=== PATIENT | female | born 1990 | race African-American/Black ===

== ENCOUNTER 2016-09-25 07:47 | Emergency (ER) | payer MEDICAID ==
[~2016-09-25] VITALS: Ht 165.1 cm; Wt 96.0 kg
[~2016-09-25 07:47] MED LIST: IBUP600 PO; LORTA5 PO
[2016-09-25 07:49] VITALS: BP 123/66; PULSE 71; RESP 15; TEMP 97.8; O2SAT 98
--- NOTE | 2016-09-25 08:03 | PD ---
HPI Chief Complaint: Injury Time Seen by Provider: 08:00 Travel History International Travel<30 days: No Contact w/Intl Traveler<30days: No Traveled to known affect area: No History of Present Illness HPI Patient is a 26-year-old right-hand dominant female presenting with right thumb and first metacarpal pain. She states yesterday she was trying to move a TV and she had her hands underneath it and took the left hand out from underneath it and pressure was applied to the dorsum of the right thumb. She's had pain and swelling since. Ice did seem to help. No other attempts at palliation. He is endorses reduced range of motion secondary to pain. Mild paresthesias, no weakness or focal deficits. She denies current . PFSH Past Medical History Diminished Hearing: No Headaches: Yes Immunizations Current: No ?: Not : 3 Para: 3 Miscarriage: 0 : 0 Past Surgical History Cholecystectomy: Yes Social History Alcohol Use: No Tobacco Use: No Substance Use: No Allergies-Medications (Allergen,Severity, Reaction): Coded Allergies: Morphine (Verified Adverse Reaction, Severe, Itching, 09/25/16) Percocet (Verified Adverse Reaction, Intermediate, Swelling, 09/25/16) Reported Meds & Prescriptions Reported Meds & Active Scripts Active Diclofenac Sodium DR (Diclofenac Sodium) 50 Mg Tabdr 50 Mg PO BID Review of Systems Musculoskeletal: Positive: Limited ROM, Edema (secondary to pain), Pain Neurologic: Positive: Paresthesia, No: Weakness, Focal Abnormalities, Sensory Disturbance Physical Exam Narrative GENERAL: Well-developed and well-nourished adult female in no acute distress. SKIN: Warm and dry. Good turgor without tenting. HEAD: Normocephalic and atraumatic. CARDIOVASCULAR: Regular rate and rhythm without murmurs, rubs, clicks or gallops. Radial pulses 2+ bilaterally. Capillary refill less than 2 seconds distal tip of the right thumb. RESPIRATORY: Clear to auscultation bilaterally with symmetrical rise and fall, no distress or use of accessory muscles. MUSCULOSKELETAL: Right thumb is mild edema in the MTP joint. If he is tender over the first metacarpal and first MTP joint without palpable step-off or crepitus. No increased laxity of the MTP joint. Patient refuses to move the right thumb secondary to pain. There is no tenderness with palpation of the right wrist. No gait disturbances. Patient freely moving all four extremities spontaneously. Extremities without clubbing or cyanosis. No obvious deformities. NEUROLOGIC: CN II-XII grossly intact. Awake and alert. Motor grossly within normal limits. Sensation intact distal tip of the right thumb. Normal speech. PSYCHIATRIC: Appropriate mood and affect; insight and judgment normal. Data Data Last Documented VS Vital Signs Date Time Temp Pulse Resp B/P Pulse Ox O2 Delivery O2 Flow Rate FiO2 09/25/16 08:21 Room Air 09/25/16 07:49 97.8 71 15 123/66 98 Orders Finger ([id number]) (09/25/16 07:58) Ice/Cold Pack (09/25/16 07:58) Splint Or Brace Apply/Monitor (09/25/16 08:31) [facility] Medical Decision Making Medical Screen Exam Complete: Yes Emergency Medical Condition: Yes Interpretation(s) Last 24 hours Impressions Finger X-Ray 09/25/16 0758 Signed Impressions: Service Date/Time: August 08:19 - CONCLUSION: No acute abnormality is identified. Margarito Fierro MD Differential Diagnosis Thumb contusion versus thumb sprain versus thumb fracture Narrative Course Patient is a 26-year-old female presenting with right thumb and first metacarpal pain after it got caught under a TV she was trying to sit on a nightstand last evening. There is mild swelling. She is neurovascularly intact. She refuses to move it secondary to pain. This most likely represents a contusion however given the mechanism and refusal to move there could be a small avulsion fracture. Patient was given ice in order x-ray which shows no acute abnormality. Patient was given Esvin wrap and a prescription for diclofenac and recommended home care measures for thumb contusion.See discharge paperwork for further instructions. The plan was discussed with the patient who acknowledged their understanding and agreement. Reinforced the follow-up with primary care is critically important. Patient instructed on emergent conditions that should prompt return to ED. Diagnosis Primary Impression: Contusion of right thumb Qualified Code: S60.011A - Contusion of right thumb without damage to nail, initial encounter Patient Instructions: Contusion in Adults (ED), Finger Sprain (ED), General Instructions Additional Instructions: Take medications as prescribed Apply ice every 1 to 2 hours as needed for pain Avoid maneuvers that aggravate pain Keep ESVIN bandage on while being active or using extremity Follow-up with PCP in 2-3 days Return to the ED for any acute worsening of symptoms Med/Other Pt SpecificInfo: Prescription(s) given Scripts Diclofenac Sodium DR 50 Mg Tabdr50 Mg PO BID #14 TAB Prov:Khris Colón MD 09/25/16 Disposition: 01 DISCHARGE HOME Condition: Stable Margarito Braswell III Sep 25, 2016 08:03
--- NOTE | 2016-09-25 08:25 | RADRPT ---
EXAM DATE/TIME: 09/25/2016 08:19 [facility] COMPARISON: No previous studies available for comparison. INDICATIONS : Right hand, 1st digit pain after dropping tv on finger. MEDICAL HISTORY : None. SURGICAL HISTORY : None. ENCOUNTER: Initial ACUITY: 2 days PAIN SCORE: 10/10 LOCATION: Right hand, 1st digit. FINDINGS: Three views the right hand first digit demonstrate no fracture or dislocation. Mineralization is with in normal limits and there is no significant arthropathy. No soft tissue abnormality or radiopaque fo reign body is identified. CONCLUSION: No acute abnormality is identified. Margarito Fierro MD on September 25, 2016 at 8:22 Board Certified Radiologist. This report was verified electronically.
[2016-09-25] MEDS ORDERED: DICL50TA3 PO (08:32)
== END 2016-09-25 09:27 | disposition home or self-care (01) ==
LOC: NEPB 07:47
DX: S60.011A Contusion of right thumb without damage to nail, initial encounter (principal); W23.1XXA Caught, crushed, jammed, or pinched between stationary objects, initial encounter
CPT/HCPCS: 73140; 99283

== ENCOUNTER 2016-12-25 18:12 | Emergency (ER) | payer MEDICAID ==
[~2016-12-25] VITALS: Ht 162.6 cm; Wt 97.5 kg
[~2016-12-25 18:12] MED LIST changes: +DICL50TA3 PO; -IBUP600 PO; -LORTA5 PO
[2016-12-25 18:17] VITALS: BP 115/71; PULSE 85; RESP 16; TEMP 98.1; O2SAT 100
[2016-12-25] MEDS ORDERED: SODIUM CHLORIDE 0.9% FLUSH 10 ML FLUSH IVF PRN (20:15)
--- NOTE | 2016-12-25 20:21 | PD ---
HPI Chief Complaint: Chest Pain Time Seen by Provider: 20:16 Travel History International Travel<30 days: No Contact w/Intl Traveler<30days: No Traveled to known affect area: No History of Present Illness HPI Patient is a 26-year-old female presenting to emergency for evaluation of chest pain. Patient states her pain is midsternal, radiates to her right ribs and right arm at times. She states her pain is currently an 8 out of 10 and states it is stabbing in nature. She denies any nausea, vomiting, headache, shortness of breath or diaphoresis. She states that it has been ongoing for 3 days, she presents today because her blood pressure was also elevated which concerned her. Her BP at home was 140/106. Patient denies any significant past medical history. [facility] Past Medical History Medical History: Denies Significant Hx Diminished Hearing: No Headaches: Yes Immunizations Current: No ?: Not LMP: 12/16/16 : 3 Para: 3 Miscarriage: 0 : 0 Past Surgical History Cholecystectomy: Yes Social History Alcohol Use: No Tobacco Use: No Substance Use: No Allergies-Medications (Allergen,Severity, Reaction): Coded Allergies: Morphine (Verified Adverse Reaction, Severe, Itching, 12/25/16) Percocet (Verified Adverse Reaction, Intermediate, Swelling, 12/25/16) Reported Meds & Prescriptions Reported Meds & Active Scripts Active Diclofenac Sodium DR (Diclofenac Sodium) 50 Mg Tabdr 50 Mg PO BID Review of Systems Except as stated in HPI: all other systems reviewed are Neg HENT: No: Headaches Cardiovascular: Positive: Chest Pain or Discomfort, No: Palpitations, Tachycardia, Diaphoresis, Syncope, Edema Respiratory: No: Shortness of Breath Gastrointestinal: No: Nausea, Abdominal Pain Musculoskeletal: No: Myalgias Physical Exam Narrative GENERAL: Obese, well-developed, alert female. Resting comfortably in no acute distress. SKIN: Focused skin assessment warm/dry. HEAD: Atraumatic. Normocephalic. EYES: Pupils equal and round. No scleral icterus. No injection or drainage. ENT: No nasal bleeding or discharge. Mucous membranes pink and moist. NECK: Trachea midline. No JVD. CARDIOVASCULAR: Regular rate and rhythm. No murmur appreciated. RESPIRATORY: No accessory muscle use. Clear to auscultation. Breath sounds equal bilaterally. GASTROINTESTINAL: Abdomen soft, non-tender, nondistended. Hepatic and splenic margins not palpable. MUSCULOSKELETAL: No obvious deformities. No clubbing. No cyanosis. No edema. NEUROLOGICAL: Awake and alert. No obvious cranial nerve deficits. Motor grossly within normal limits. Normal speech. PSYCHIATRIC: Appropriate mood and affect; insight and judgment normal. Data Data Last Documented VS Vital Signs Date Time Temp Pulse Resp B/P Pulse Ox O2 Delivery O2 Flow Rate FiO2 12/25/16 22:18 68 18 135/68 99 12/25/16 21:24 Room Air 12/25/16 18:17 98.1 Orders Electrocardiogram (12/25/16 ) Basic Metabolic Panel (Bmp) (12/25/16 20:05) Ckmb (Isoenzyme) Profile (12/25/16 20:05) Complete Blood Count With Diff (12/25/16 20:05) D-Dimer (12/25/16 20:05) Magnesium (Mg) (12/25/16 20:05) Prothrombin Time / Inr (Pt) (12/25/16 20:05) Act Partial Throm Time (Ptt) (12/25/16 20:05) Troponin I (12/25/16 20:05) Chest, Single Ap (12/25/16 20:05) Ecg Monitoring (12/25/16 20:05) Bilateral Bp Monitoring (12/25/16 20:05) Iv Access Insert/Monitor (12/25/16 20:05) Oximetry (12/25/16 20:05) Oxygen Administration (12/25/16 20:05) Sodium Chloride 0.9% Flush (Ns Flush) (12/25/16 20:15) CKMB (12/25/16 20:29) CKMB% (12/25/16 20:29) Labs Laboratory Tests Test 12/25/16 20:29 White Blood Count 11.7 TH/MM3 Red Blood Count 4.37 MIL/MM3 Hemoglobin 11.0 GM/DL Hematocrit 34.1 % Mean Corpuscular Volume 78.0 FL Mean Corpuscular Hemoglobin 25.1 PG Mean Corpuscular Hemoglobin 32.2 % Concent Red Cell Distribution Width 15.6 % Platelet Count 409 TH/MM3 Mean Platelet Volume 7.5 FL Neutrophils (%) (Auto) 63.3 % Lymphocytes (%) (Auto) 29.6 % Monocytes (%) (Auto) 6.0 % Eosinophils (%) (Auto) 0.7 % Basophils (%) (Auto) 0.4 % Neutrophils # (Auto) 7.4 TH/MM3 Lymphocytes # (Auto) 3.5 TH/MM3 Monocytes # (Auto) 0.7 TH/MM3 Eosinophils # (Auto) 0.1 TH/MM3 Basophils # (Auto) 0.0 TH/MM3 CBC Comment DIFF FINAL Differential Comment Prothrombin Time 10.7 SEC Prothromb Time International 1.0 RATIO Ratio Activated Partial 22.6 SEC Thromboplast Time D-Dimer Quantitative (PE/DVT) 0.34 MG/L FEU Sodium Level 138 MEQ/L Potassium Level 4.0 MEQ/L Chloride Level 107 MEQ/L Carbon Dioxide Level 23.7 MEQ/L Anion Gap 7 MEQ/L Blood Urea Nitrogen 10 MG/DL Creatinine 0.77 MG/DL Estimat Glomerular Filtration 109 ML/MIN Rate Random Glucose 80 MG/DL Calcium Level 8.9 MG/DL Magnesium Level 2.0 MG/DL Total Creatine Kinase 141 U/L Creatine Kinase MB 0.6 NG/ML Troponin I LESS THAN 0.02 NG/ML MDM Medical Decision Making Medical Screen Exam Complete: Yes Emergency Medical Condition: Yes Interpretation(s) Vital Signs Date Time Temp Pulse Resp B/P Pulse Ox O2 Delivery O2 Flow Rate FiO2 12/25/16 18:17 98.1 85 16 115/71 100 Room Air Differential Diagnosis Atypical chest pain versus unstable angina versus cardiac arrhythmia versus electrolyte abnormality versus costochondritis versus other Narrative Course Patient is a 26-year-old female presenting to emergency department with 3 days of intermittent midsternal stabbing chest pain. Patient's vital signs are stable, she appears well, she is distracted by her cell phone and the TV. EKG, labs, chest x-ray ordered and pending. Care of pt transferred to my attending physician at the end of my shift, she will determine pt's disposition. Laurie Kim Dec 25, 2016 20:21
[2016-12-25 20:55] LABS: AUTOMATED NEUTROPHIL # 7.4 TH/MM3 (1.8-7.7); BASOPHIL % 0.4 % (0.0-2.0); EOSINOPHIL # 0.1 TH/MM3 (0-0.4); EOSINOPHIL % 0.7 % (0.0-4.0); HEMATOCRIT 34.1 % (35.0-46.0); HEMO FLAGS DIFF FINAL; LYMPH % 29.6 % (9.0-44.0); LYMPHOCYTE # 3.5 TH/MM3 (1.0-4.8); MEAN CORPUSCULAR HEMOGLOBIN 25.1 PG (27.0-34.0); MEAN CORPUSCULAR HGB CONC 32.2 % (32.0-36.0); NEUT % 63.3 % (16.0-70.0); PLATELET COUNT 409 TH/MM3 (150-450); RED BLOOD COUNT 4.37 MIL/MM3 (4.00-5.30); RED CELL DISTRIBUTION WIDTH 15.6 % (11.6-17.2); WHITE BLOOD COUNT 11.7 TH/MM3 (4.0-11.0)
--- NOTE | 2016-12-25 20:56 | EKG ---
Date Performed: 12/25/2016 Time Performed: 18:26:18 PTAGE: 26 years EKG: Sinus rhythm NORMAL ECG NO SIGNIFICANT CHANGE FROM PRIOR ELECTROCARDIOGRAM. PREVIOUS TRACING : 04/19/2015 21.25 DOCTOR: Alfonso Reyes Interpretating Date/Time 12/25/2016 20:56:09
--- NOTE | 2016-12-25 20:59 | RADRPT ---
EXAM DATE/TIME: 12/25/2016 20:28 [facility] COMPARISON: No previous studies available for comparison. INDICATIONS : Patient has had chest pain for three days. MEDICAL HISTORY : None. SURGICAL HISTORY : None. ENCOUNTER: Initial ACUITY: 3 days PAIN SCORE: 8/10 LOCATION: chest Center FINDINGS: The lungs are clear without infiltrate, nodule, or mass. There is no appreciable pleural effusion fo r technique. Heart and mediastinum are unremarkable. CONCLUSION: No acute cardiopulmonary disease. Morelia Manning MD on December 25, 2016 at 20:57 Board Certified Radiologist. This report was verified electronically.
[2016-12-25 21:09] LABS: APTT (PATIENT) 22.6 SEC (24.3-30.1); PROTHROMBIN TIME - PATIENT 10.7 SEC (9.8-11.6)
[2016-12-25 21:24] VITALS: BP 122/73; PULSE 73; RESP 18; O2SAT 100
[2016-12-25 21:26] LABS: ANION GAP 7 MEQ/L (5-15); BICARBONATE 23.7 MEQ/L (21.0-32.0); BLOOD UREA NITROGEN 10 MG/DL (7-18); CHLORIDE 107 MEQ/L (98-107); CREATINE KINASE 141 U/L (26-192); GLOMERULAR FILTRATION RATE 109 ML/MIN (>89); SODIUM (NA) 138 MEQ/L (136-145)
[2016-12-25 21:38] LABS: CKMB 0.6 NG/ML (0.5-3.6)
--- NOTE | 2016-12-25 21:56 | PD ---
Physical Exam Date Seen by Provider: Dec 25, 2016 Data Data Last Documented VS Vital Signs Date Time Temp Pulse Resp B/P Pulse Ox O2 Delivery O2 Flow Rate FiO2 12/25/16 21:24 73 18 122/73 100 Room Air 12/25/16 18:17 98.1 Orders Electrocardiogram (12/25/16 ) Basic Metabolic Panel (Bmp) (12/25/16 20:05) Ckmb (Isoenzyme) Profile (12/25/16 20:05) Complete Blood Count With Diff (12/25/16 20:05) D-Dimer (12/25/16 20:05) Magnesium (Mg) (12/25/16 20:05) Prothrombin Time / Inr (Pt) (12/25/16 20:05) Act Partial Throm Time (Ptt) (12/25/16 20:05) Troponin I (12/25/16 20:05) Chest, Single Ap (12/25/16 20:05) Ecg Monitoring (12/25/16 20:05) Bilateral Bp Monitoring (12/25/16 20:05) Iv Access Insert/Monitor (12/25/16 20:05) Oximetry (12/25/16 20:05) Oxygen Administration (12/25/16 20:05) Sodium Chloride 0.9% Flush (Ns Flush) (12/25/16 20:15) CKMB (12/25/16 20:29) CKMB% (12/25/16 20:29) Labs Laboratory Tests Test 12/25/16 20:29 White Blood Count 11.7 TH/MM3 Red Blood Count 4.37 MIL/MM3 Hemoglobin 11.0 GM/DL Hematocrit 34.1 % Mean Corpuscular Volume 78.0 FL Mean Corpuscular Hemoglobin 25.1 PG Mean Corpuscular Hemoglobin 32.2 % Concent Red Cell Distribution Width 15.6 % Platelet Count 409 TH/MM3 Mean Platelet Volume 7.5 FL Neutrophils (%) (Auto) 63.3 % Lymphocytes (%) (Auto) 29.6 % Monocytes (%) (Auto) 6.0 % Eosinophils (%) (Auto) 0.7 % Basophils (%) (Auto) 0.4 % Neutrophils # (Auto) 7.4 TH/MM3 Lymphocytes # (Auto) 3.5 TH/MM3 Monocytes # (Auto) 0.7 TH/MM3 Eosinophils # (Auto) 0.1 TH/MM3 Basophils # (Auto) 0.0 TH/MM3 CBC Comment DIFF FINAL Differential Comment Prothrombin Time 10.7 SEC Prothromb Time International 1.0 RATIO Ratio Activated Partial 22.6 SEC Thromboplast Time D-Dimer Quantitative (PE/DVT) 0.34 MG/L FEU Sodium Level 138 MEQ/L Potassium Level 4.0 MEQ/L Chloride Level 107 MEQ/L Carbon Dioxide Level 23.7 MEQ/L Anion Gap 7 MEQ/L Blood Urea Nitrogen 10 MG/DL Creatinine 0.77 MG/DL Estimat Glomerular Filtration 109 ML/MIN Rate Random Glucose 80 MG/DL Calcium Level 8.9 MG/DL Magnesium Level 2.0 MG/DL Total Creatine Kinase 141 U/L Creatine Kinase MB 0.6 NG/ML Troponin I LESS THAN 0.02 NG/ML [facility] Medical Record Reviewed: Yes Supervised Visit with JOSE: Yes Interpretation(s) EKG at 1826: Normal sinus rhythm at 70 beats for minute, QT/QTC 364/327, no acute ST or T-wave changes Vital Signs Date Time Temp Pulse Resp B/P Pulse Ox O2 Delivery O2 Flow Rate FiO2 12/25/16 21:24 73 18 122/73 100 Room Air 12/25/16 20:45 75 Room Air 12/25/16 20:45 Room Air 12/25/16 20:45 100 Room Air 12/25/16 18:17 98.1 85 16 115/71 100 Room Air Laboratory Tests Test 12/25/16 20:29 White Blood Count 11.7 TH/MM3 (4.0-11.0) Red Blood Count 4.37 MIL/MM3 (4.00-5.30) Hemoglobin 11.0 GM/DL (11.6-15.3) Hematocrit 34.1 % (35.0-46.0) Mean Corpuscular Volume 78.0 FL (80.0-100.0) Mean Corpuscular Hemoglobin 25.1 PG (27.0-34.0) Mean Corpuscular Hemoglobin 32.2 % Concent (32.0-36.0) Red Cell Distribution Width 15.6 % (11.6-17.2) Platelet Count 409 TH/MM3 (150-450) Mean Platelet Volume 7.5 FL (7.0-11.0) Neutrophils (%) (Auto) 63.3 % (16.0-70.0) Lymphocytes (%) (Auto) 29.6 % (9.0-44.0) Monocytes (%) (Auto) 6.0 % (0.0-8.0) Eosinophils (%) (Auto) 0.7 % (0.0-4.0) Basophils (%) (Auto) 0.4 % (0.0-2.0) Neutrophils # (Auto) 7.4 TH/MM3 (1.8-7.7) Lymphocytes # (Auto) 3.5 TH/MM3 (1.0-4.8) Monocytes # (Auto) 0.7 TH/MM3 (0-0.9) Eosinophils # (Auto) 0.1 TH/MM3 (0-0.4) Basophils # (Auto) 0.0 TH/MM3 (0-0.2) CBC Comment DIFF FINAL Differential Comment Prothrombin Time 10.7 SEC (9.8-11.6) Prothromb Time International 1.0 RATIO Ratio Activated Partial 22.6 SEC Thromboplast Time (24.3-30.1) D-Dimer Quantitative (PE/DVT) 0.34 MG/L FEU (0.00-0.50) Sodium Level 138 MEQ/L (136-145) Potassium Level 4.0 MEQ/L (3.5-5.1) Chloride Level 107 MEQ/L (98-107) Carbon Dioxide Level 23.7 MEQ/L (21.0-32.0) Anion Gap 7 MEQ/L (5-15) Blood Urea Nitrogen 10 MG/DL (7-18) Creatinine 0.77 MG/DL (0.50-1.00) Estimat Glomerular Filtration 109 ML/MIN Rate (>89) Random Glucose 80 MG/DL (74-106) Calcium Level 8.9 MG/DL (8.5-10.1) Magnesium Level 2.0 MG/DL (1.5-2.5) Total Creatine Kinase 141 U/L (26-192) Creatine Kinase MB 0.6 NG/ML (0.5-3.6) Troponin I LESS THAN 0.02 NG/ML (0.02-0.05) Last Impressions Chest X-Ray 12/25/162004 Signed Impressions: Service Date/Time: November 20:28 - CONCLUSION: No acute cardiopulmonary disease. Morelia Manning MD Differential Diagnosis Costochondritis, ACS, electrolyte abnormality, PE Narrative Course I, Dr. Martínez, have reviewed the advance practice practitioner's documentation and am in agreement, met with the patient face to face, made the diagnosis, and the medical decision making was done by me. *My assessment and Findings: Atypical chest pain Patient is a 26-year-old female who presents to emergency room for evaluation of chest pain. That chest pain is substernal in nature, ports that pain is sharp and stabbing in nature and sometimes radiates to her right ribs and right arms. She reports that symptoms are intermittent in nature, reports that sometimes her symptoms can last for hours at a time. Reports that she became concerned as she has had these symptoms for the past 3 days. Patient denies any history of hypertension, hyperlipidemia, diabetes, and denies use of drugs or alcohol. She with no recent travels, no risk factors for PE. Patient with no family history of early coronary disease or [place]. Laboratory Tests Test 12/25/16 20:29 White Blood Count 11.7 TH/MM3 (4.0-11.0) Red Blood Count 4.37 MIL/MM3 (4.00-5.30) Hemoglobin 11.0 GM/DL (11.6-15.3) Hematocrit 34.1 % (35.0-46.0) Mean Corpuscular Volume 78.0 FL (80.0-100.0) Mean Corpuscular Hemoglobin 25.1 PG (27.0-34.0) Mean Corpuscular Hemoglobin 32.2 % Concent (32.0-36.0) Red Cell Distribution Width 15.6 % (11.6-17.2) Platelet Count 409 TH/MM3 (150-450) Mean Platelet Volume 7.5 FL (7.0-11.0) Neutrophils (%) (Auto) 63.3 % (16.0-70.0) Lymphocytes (%) (Auto) 29.6 % (9.0-44.0) Monocytes (%) (Auto) 6.0 % (0.0-8.0) Eosinophils (%) (Auto) 0.7 % (0.0-4.0) Basophils (%) (Auto) 0.4 % (0.0-2.0) Neutrophils # (Auto) 7.4 TH/MM3 (1.8-7.7) Lymphocytes # (Auto) 3.5 TH/MM3 (1.0-4.8) Monocytes # (Auto) 0.7 TH/MM3 (0-0.9) Eosinophils # (Auto) 0.1 TH/MM3 (0-0.4) Basophils # (Auto) 0.0 TH/MM3 (0-0.2) CBC Comment DIFF FINAL Differential Comment Prothrombin Time 10.7 SEC (9.8-11.6) Prothromb Time International 1.0 RATIO Ratio Activated Partial 22.6 SEC Thromboplast Time (24.3-30.1) D-Dimer Quantitative (PE/DVT) 0.34 MG/L FEU (0.00-0.50) Sodium Level 138 MEQ/L (136-145) Potassium Level 4.0 MEQ/L (3.5-5.1) Chloride Level 107 MEQ/L (98-107) Carbon Dioxide Level 23.7 MEQ/L (21.0-32.0) Anion Gap 7 MEQ/L (5-15) Blood Urea Nitrogen 10 MG/DL (7-18) Creatinine 0.77 MG/DL (0.50-1.00) Estimat Glomerular Filtration 109 ML/MIN Rate (>89) Random Glucose 80 MG/DL (74-106) Calcium Level 8.9 MG/DL (8.5-10.1) Magnesium Level 2.0 MG/DL (1.5-2.5) Total Creatine Kinase 141 U/L (26-192) Creatine Kinase MB 0.6 NG/ML (0.5-3.6) Troponin I LESS THAN 0.02 NG/ML (0.02-0.05) All labs and all studies reviewed patient in detail. Patient With atypical chest pain. Patient reports that she is feeling better at this time. Plan to discharge patient and have her follow up with pcp and return to ER as needed. Signs and symptoms of when to return to the emergency room was reviewed patient in detail. Heart score: 1 as patient is obese Diagnosis Primary Impression: Chest pain Qualified Code: R07.9 - Chest pain, unspecified type Patient Instructions: General Instructions Additional Instruction: Return to the emergency room as needed Please follow up with her primary care doctor in 2-3 days Disposition: DISCHARGE HOME Condition: Stable Miracle Martínez DO Dec 25, 2016 21:56
[2016-12-25 22:18] VITALS: BP 135/68
== END 2016-12-25 22:21 | disposition home or self-care (01) ==
LOC: NEPD 18:12
DX: R07.9 Chest pain, unspecified (principal)
CPT/HCPCS: 71010; 80048; 82550; 82552; 83735; 84484; 85025; 85379; 85610; 85730; 93005

== ENCOUNTER 2017-01-06 16:54 | Emergency (ER) | payer MEDICAID ==
[~2017-01-06] VITALS: Ht 162.6 cm; Wt 86.0 kg
[2017-01-06 16:57] VITALS: BP 121/68; PULSE 80; RESP 14; TEMP 98.2; O2SAT 99
[2017-01-06] MEDS ORDERED: SODIUM CHLOR 0.9% 1000 ML INJ 1,000 ML IV SCH (18:49)
--- NOTE | 2017-01-06 18:53 | PD ---
HPI Chief Complaint: GI Complaint Time Seen by Provider: 18:43 Travel History International Travel<30 days: No Contact w/Intl Traveler<30days: No Traveled to known affect area: No History of Present Illness HPI 26-year-old female who reports a history of cholecystectomy 2 years ago. She presents for evaluation of nausea, vomiting, diarrhea. Symptoms started 5 days ago. She reports multiple episodes of nonbloody emesis over the past 5 days. She reports intermittent diarrhea. She endorses nausea currently. She denies any cough, congestion, sore throat, fevers or chills, flank pain, dysuria, increased urinary frequency or hesitancy, vaginal bleeding or discharge, abdominal pain. Denies any dietary changes. No sick contacts, no recent travel. She has tried using [id number] Pepto-Bismol which did not seem to help. She reports that her last period was December 26. She has no other complaints at this time. PFSH Past Medical History Diminished Hearing: No Headaches: Yes Immunizations Current: No ?: Not LMP: 12/26/16 : 3 Para: 3 Miscarriage: 0 : 0 Past Surgical History Cholecystectomy: Yes Social History Alcohol Use: No Tobacco Use: No Substance Use: No Allergies-Medications (Allergen,Severity, Reaction): Coded Allergies: Morphine (Verified Adverse Reaction, Severe, Itching, 01/06/17) Percocet (Verified Adverse Reaction, Intermediate, Swelling, 01/06/17) Reported Meds & Prescriptions Reported Meds & Active Scripts Active Zofran (Ondansetron HCl) 4 Mg Tab 4 Mg PO Q6HR PRN Macrobid (Nitrofurantoin Monoh/Nitrofur Macro) 100 Mg Cap 100 Mg PO BID 7 Days Review of Systems Except as stated in HPI: all other systems reviewed are Neg Physical Exam Narrative GENERAL: Well-developed well-nourished female in no acute distress vital signs stable SKIN: Warm and dry. HEAD: Atraumatic. Normocephalic. EYES: Pupils equal and round. No scleral icterus. No injection or drainage. ENT: No nasal bleeding or discharge. Mucous membranes pink and moist. NECK: Trachea midline. No JVD. CARDIOVASCULAR: Regular rate and rhythm. No murmur appreciated. RESPIRATORY: No accessory muscle use. Clear to auscultation. Breath sounds equal bilaterally. GASTROINTESTINAL: Abdomen soft, non-tender, nondistended. Hepatic and splenic margins not palpable. No guarding. No CVA tenderness. MUSCULOSKELETAL: No obvious deformities. No edema. NEUROLOGICAL: Awake and alert. No obvious cranial nerve deficits. Motor grossly within normal limits. Normal speech. PSYCHIATRIC: Appropriate mood and affect; insight and judgment normal. Data Data Last Documented VS Vital Signs Date Time Temp Pulse Resp B/P Pulse Ox O2 Delivery O2 Flow Rate FiO2 01/06/17 16:57 98.2 80 14 121/68 99 Orders Complete Blood Count With Diff (01/06/17 18:49) Comprehensive Metabolic Panel (01/06/17 18:49) Urinalysis - C+S If Indicated (01/06/17 18:49) Iv Access Insert/Monitor (01/06/17 18:49) Ondansetron Inj (Zofran Inj) (01/06/17 19:00) Sodium Chlor 0.9% 1000 Ml Inj (Ns 1000 M (01/06/17 18:49) Ed Urine Pregnancytest Poc (01/06/17 18:49) Labs Laboratory Tests Test 01/06/17 19:15 White Blood Count 12.7 TH/MM3 Red Blood Count 4.96 MIL/MM3 Hemoglobin 12.2 GM/DL Hematocrit 39.3 % Mean Corpuscular Volume 79.2 FL Mean Corpuscular Hemoglobin 24.7 PG Mean Corpuscular Hemoglobin 31.2 % Concent Red Cell Distribution Width 15.0 % Platelet Count 397 TH/MM3 Mean Platelet Volume 7.4 FL Neutrophils (%) (Auto) 75.7 % Lymphocytes (%) (Auto) 19.5 % Monocytes (%) (Auto) 4.5 % Eosinophils (%) (Auto) 0.1 % Basophils (%) (Auto) 0.2 % Neutrophils # (Auto) 9.6 TH/MM3 Lymphocytes # (Auto) 2.5 TH/MM3 Monocytes # (Auto) 0.6 TH/MM3 Eosinophils # (Auto) 0.0 TH/MM3 Basophils # (Auto) 0.0 TH/MM3 CBC Comment AUTO DIFF Urine Color YELLOW Urine Turbidity HAZY Urine pH 5.5 Urine Specific [place] 1.013 Urine Protein NEG mg/dL Urine Glucose (UA) NEG mg/dL Urine Ketones 10 mg/dL Urine Occult Blood NEG Urine Nitrite NEG Urine Bilirubin NEG Urine Urobilinogen LESS THAN 2.0 MG/DL Urine Leukocyte Esterase LARGE Urine RBC 3 /hpf Urine WBC 6 /hpf Urine Squamous Epithelial 5 /hpf Cells Urine Bacteria RARE /hpf Urine Mucus FEW /lpf Microscopic Urinalysis Comment CULT NOT INDICATED Sodium Level 134 MEQ/L Potassium Level 4.3 MEQ/L Chloride Level 104 MEQ/L Carbon Dioxide Level 24.2 MEQ/L Anion Gap 6 MEQ/L Blood Urea Nitrogen 8 MG/DL Creatinine 0.82 MG/DL Estimat Glomerular Filtration 101 ML/MIN Rate Random Glucose 80 MG/DL Calcium Level 8.9 MG/DL Total Bilirubin 0.5 MG/DL Aspartate Amino Transf 35 U/L (AST/SGOT) Alanine Aminotransferase 22 U/L (ALT/SGPT) Alkaline Phosphatase 61 U/L Total Protein 8.7 GM/DL Albumin 4.2 GM/DL [facility] Medical Decision Making Medical Screen Exam Complete: Yes Emergency Medical Condition: Yes Medical Record Reviewed: Yes Differential Diagnosis Gastroenteritis, gastritis, dehydration, early , pyelonephritis Narrative Course 26-year-old female presents with nausea, vomiting, intermittent diarrhea for 4- 5 days. Her abdomen is soft and nontender. She does not appear acutely dehydrated. Plan is for basic lab work. She'll be given IV fluids and Zofran. She will be monitored closely. The patient's lab work is been reviewed. She has a positive urine test. Her urinalysis reveals some bacteria so she'll be treated for asymptomatic bacteriuria in . Upon reexamination she felt improved after administration of fluid and Zofran. Continues to exhibit no abdominal pain or vaginal bleeding or discharge. Plan is to have her follow-up with an OB /[facility] for outpatient follow-up. She'll be discharged with a short course of Macrobid, Zofran. Diagnosis Primary Impression: Early stage of Additional Impressions: Nausea and vomiting Qualified Code: R11.2 - Nausea and vomiting, intractability of vomiting not specified, unspecified vomiting type Asymptomatic bacteriuria Referrals: Bakery Assistant Additional Instructions: Medication as needed. Begin vitamins. Follow-up with an SE[facility] GR[facility]ER to establish care. Return for any emergent medical conditions. Med/Other Pt SpecificInfo: Prescription(s) given Scripts Ondansetron (Zofran)4 Mg Tab4 Mg PO Q6HR PRN (NAUSEA OR VOMITING) #20 TAB Ref 0 Prov:Khris Colón MD 01/06/17 Nitrofurantoin Monohydrate Macrocrystals (Macrobid)100 Mg [id number] Mg PO BID 7 Days Ref 0 Prov:Khris Colón MD 01/06/17 Disposition: 01 DISCHARGE HOME Condition: Stable Tarun Dixon January 06, 2017 18:53
[2017-01-06] MEDS ORDERED: ONDANSETRON HCL 4 MG/2 ML VIAL IVP ONE (19:00)
[2017-01-06 19:36] LABS: AUTOMATED NEUTROPHIL # 9.6 TH/MM3 (1.8-7.7); BASOPHIL % 0.2 % (0.0-2.0); EOSINOPHIL % 0.1 % (0.0-4.0); HEMATOCRIT 39.3 % (35.0-46.0); LYMPH % 19.5 % (9.0-44.0); LYMPHOCYTE # 2.5 TH/MM3 (1.0-4.8); MEAN CELL VOLUME 79.2 FL (80.0-100.0); MEAN CORPUSCULAR HEMOGLOBIN 24.7 PG (27.0-34.0); MEAN CORPUSCULAR HGB CONC 31.2 % (32.0-36.0); MONO % 4.5 % (0.0-8.0); NEUT % 75.7 % (16.0-70.0); PLATELET COUNT 397 TH/MM3 (150-450); RED BLOOD COUNT 4.96 MIL/MM3 (4.00-5.30); WHITE BLOOD COUNT 12.7 TH/MM3 (4.0-11.0)
[2017-01-06 19:42] LABS: HEMO FLAGS AUTO DIFF
[2017-01-06 19:44] LABS: BACTERIA, URINE RARE /hpf; BLOOD, URINE NEG (NEG); COMMENT (UR) CULT NOT INDICATED; CULTURE IF INDICATED CULT NOT INDICATED; GLUCOSE,URINE NEG (NEG); KETONE, URINE 10 mg/dL (NEG); MUCUS URINE FEW /lpf (OCC); NITRITE,URINE NEG (NEG); PH, URINE 5.5 (5.0-8.5); SQUAMOUS EPITHELIAL CELL URINE 5 /hpf (0-5); URINE COLOR YELLOW (YELLW/STRAW)
[2017-01-06 19:50] LABS: ANION GAP 6 MEQ/L (5-15)
[2017-01-06 19:53] LABS: ALKALINE PHOSPHATASE 61 U/L (45-117); ALT (GPT) 22 U/L (10-53); AST (GOT) 35 U/L (15-37); BICARBONATE 24.2 MEQ/L (21.0-32.0); BLOOD UREA NITROGEN 8 MG/DL (7-18); CHLORIDE 104 MEQ/L (98-107); GLOMERULAR FILTRATION RATE 101 ML/MIN (>89); SODIUM (NA) 134 MEQ/L (136-145); TOTAL BILIRUBIN ADULT 0.5 MG/DL (0.2-1.0)
[2017-01-06 19:56] LABS: POTASSIUM 4.3 MEQ/L (3.5-5.1)
[2017-01-06] MEDS ORDERED: ZOFR4TAB PO (20:01)
[2017-01-06] MEDS ORDERED: MACR100C2 PO (20:01)
[2017-01-06 20:12] LABS: SCAN/DIFF AUTO DIFF CONFIRMED
== END 2017-01-06 20:35 | disposition home or self-care (01) ==
LOC: NEPD 16:54
DX: O26.891 Other specified pregnancy related conditions, first trimester (principal); R11.2 Nausea with vomiting, unspecified; R82.71 Bacteriuria
CPT/HCPCS: 80053; 81001; 84703; 85025; 96361; 96374; 99284; J2405; J7030

== ENCOUNTER 2017-03-02 11:12 | Emergency (ER) | payer MEDICAID ==
[~2017-03-02] VITALS: Ht 162.6 cm; Wt 100.0 kg
[~2017-03-02 11:12] MED LIST changes: -DICL50TA3 PO; +MACR100C2 PO; +ZOFR4TAB PO
[2017-03-02 11:13] VITALS: BP 121/69; PULSE 89; RESP 14; TEMP 98.2; O2SAT 98
[2017-03-02] MEDS ORDERED: SODIUM CHLOR 0.9% 1000 ML INJ 1,000 ML IV ONE (11:38)
[2017-03-02] MEDS ORDERED: SODIUM CHLORIDE 0.9% FLUSH 10 ML FLUSH IVF PRN (11:45)
[2017-03-02] MEDS ORDERED: ONDANSETRON HCL 4 MG/2 ML VIAL IVP ONE (11:45)
--- NOTE | 2017-03-02 11:54 | PD ---
HPI Chief Complaint: Related Problem Time Seen by Provider: 11:51 Travel History International Travel<30 days: No Contact w/Intl Traveler<30days: No Traveled to known affect area: No History of Present Illness HPI Patient is a 26-year-old female presented to emergency department evaluation of nausea and vomiting. Patient states she is 15 weeks has had these issues since the onset of her . She has been on Diclegis and Zofran with no improvement of her symptoms. She reports being sent to the emergency department by her piece dyer Dr. Patel for evaluation. She reports vomiting every time she eats or drinks anything. She denies vaginal bleeding, discharge, abdominal pain or cramping. This patient 6 , she's had no issues with pregnancies in the past, no preeclampsia, no gestational diabetes. Patient has not had any issues with nausea vomiting and passed pregnancies as well. PFSH Past Medical History Medical History: Denies Significant Hx Diminished Hearing: No Headaches: Yes Immunizations Current: No ?: : 6 Para: 5 Miscarriage: 0 : 0 Past Surgical History Cholecystectomy: Yes Social History Alcohol Use: No Tobacco Use: No Substance Use: No Allergies-Medications (Allergen,Severity, Reaction): Coded Allergies: Morphine (Verified Adverse Reaction, Severe, Itching, 03/02/17) Percocet (Verified Adverse Reaction, Intermediate, Swelling, 03/02/17) Reported Meds & Prescriptions Reported Meds & Active Scripts Active Zofran (Ondansetron HCl) 4 Mg Tab 4 Mg PO Q6HR PRN Macrobid (Nitrofurantoin Monoh/Nitrofur Macro) 100 Mg Cap 100 Mg PO BID 7 Days Review of Systems Except as stated in HPI: all other systems reviewed are Neg Gastrointestinal: Positive: Nausea, Vomiting Physical Exam Narrative GENERAL: Overweight, well-developed, alert female. Resting comfortably in no acute distress. SKIN: Focused skin assessment warm/dry. HEAD: Atraumatic. Normocephalic. EYES: Pupils equal and round. No scleral icterus. No injection or drainage. ENT: No nasal bleeding or discharge. Mucous membranes pink and moist. NECK: Trachea midline. No JVD. CARDIOVASCULAR: Regular rate and rhythm. No murmur appreciated. RESPIRATORY: No accessory muscle use. Clear to auscultation. Breath sounds equal bilaterally. GASTROINTESTINAL: Abdomen soft, non-tender, nondistended. Hepatic and splenic margins not palpable. MUSCULOSKELETAL: No obvious deformities. No clubbing. No cyanosis. No edema. NEUROLOGICAL: Awake and alert. No obvious cranial nerve deficits. Motor grossly within normal limits. Normal speech. PSYCHIATRIC: Appropriate mood and affect; insight and judgment normal. Data Data Last Documented VS Vital Signs Date Time Temp Pulse Resp B/P Pulse Ox O2 Delivery O2 Flow Rate FiO2 03/02/17 11:13 98.2 89 14 121/69 98 Orders Complete Blood Count With Diff (03/02/17 11:38) Comprehensive Metabolic Panel (03/02/17 11:38) Urinalysis - C+S If Indicated (03/02/17 11:38) Lipase (03/02/17 11:38) Iv Access Insert/Monitor (03/02/17 11:38) Ecg Monitoring (03/02/17 11:38) Oximetry (03/02/17 11:38) Ondansetron Inj (Zofran Inj) (03/02/17 11:45) Sodium Chlor 0.9% 1000 Ml Inj (Ns 1000 M (03/02/17 11:38) Sodium Chloride 0.9% Flush (Ns Flush) (03/02/17 11:45) Labs Laboratory Tests Test 03/02/17 03/02/17 11:50 13:20 White Blood Count 8.1 TH/MM3 Red Blood Count 4.36 MIL/MM3 Hemoglobin 11.4 GM/DL Hematocrit 34.8 % Mean Corpuscular Volume 79.7 FL Mean Corpuscular Hemoglobin 26.2 PG Mean Corpuscular Hemoglobin 32.9 % Concent Red Cell Distribution Width 14.5 % Platelet Count 352 TH/MM3 Mean Platelet Volume 7.6 FL Neutrophils (%) (Auto) 70.7 % Lymphocytes (%) (Auto) 22.7 % Monocytes (%) (Auto) 5.6 % Eosinophils (%) (Auto) 0.5 % Basophils (%) (Auto) 0.5 % Neutrophils # (Auto) 5.7 TH/MM3 Lymphocytes # (Auto) 1.8 TH/MM3 Monocytes # (Auto) 0.5 TH/MM3 Eosinophils # (Auto) 0.0 TH/MM3 Basophils # (Auto) 0.0 TH/MM3 CBC Comment DIFF FINAL Differential Comment Sodium Level 137 MEQ/L Potassium Level 3.6 MEQ/L Chloride Level 107 MEQ/L Carbon Dioxide Level 24.0 MEQ/L Anion Gap 6 MEQ/L Blood Urea Nitrogen 5 MG/DL Creatinine 0.57 MG/DL Estimat Glomerular Filtration 154 ML/MIN Rate Random Glucose 73 MG/DL Calcium Level 8.8 MG/DL Total Bilirubin 0.4 MG/DL Aspartate Amino Transf 22 U/L (AST/SGOT) Alanine Aminotransferase 29 U/L (ALT/SGPT) Alkaline Phosphatase 59 U/L Total Protein 7.3 GM/DL Albumin 3.3 GM/DL Lipase 107 U/L Urine Color YELLOW Urine Turbidity CLEAR Urine pH 8.5 Urine Specific [place] 1.022 Urine Protein 30 mg/dL Urine Glucose (UA) NEG mg/dL Urine Ketones NEG mg/dL Urine Occult Blood NEG Urine Nitrite NEG Urine Bilirubin NEG Urine Urobilinogen 2.0 MG/DL Urine Leukocyte Esterase NEG Urine RBC 1 /hpf Urine WBC 1 /hpf Urine Squamous Epithelial 1 /hpf Cells Urine Mucus FEW /lpf Microscopic Urinalysis Comment CULT NOT INDICATED MDM Medical Decision Making Medical Screen Exam Complete: Yes Emergency Medical Condition: Yes Interpretation(s) Laboratory Tests Test 03/02/17 03/02/17 11:50 13:20 White Blood Count 8.1 TH/MM3 Red Blood Count 4.36 MIL/MM3 Hemoglobin 11.4 GM/DL Hematocrit 34.8 % Mean Corpuscular Volume 79.7 FL Mean Corpuscular Hemoglobin 26.2 PG Mean Corpuscular Hemoglobin 32.9 % Concent Red Cell Distribution Width 14.5 % Platelet Count 352 TH/MM3 Mean Platelet Volume 7.6 FL Neutrophils (%) (Auto) 70.7 % Lymphocytes (%) (Auto) 22.7 % Monocytes (%) (Auto) 5.6 % Eosinophils (%) (Auto) 0.5 % Basophils (%) (Auto) 0.5 % Neutrophils # (Auto) 5.7 TH/MM3 Lymphocytes # (Auto) 1.8 TH/MM3 Monocytes # (Auto) 0.5 TH/MM3 Eosinophils # (Auto) 0.0 TH/MM3 Basophils # (Auto) 0.0 TH/MM3 CBC Comment DIFF FINAL Differential Comment Sodium Level 137 MEQ/L Potassium Level 3.6 MEQ/L Chloride Level 107 MEQ/L Carbon Dioxide Level 24.0 MEQ/L Anion Gap 6 MEQ/L Blood Urea Nitrogen 5 MG/DL Creatinine 0.57 MG/DL Estimat Glomerular Filtration 154 ML/MIN Rate Random Glucose 73 MG/DL Calcium Level 8.8 MG/DL Total Bilirubin 0.4 MG/DL Aspartate Amino Transf 22 U/L (AST/SGOT) Alanine Aminotransferase 29 U/L (ALT/SGPT) Alkaline Phosphatase 59 U/L Total Protein 7.3 GM/DL Albumin 3.3 GM/DL Lipase 107 U/L Urine Color YELLOW Urine Turbidity CLEAR Urine pH 8.5 Urine Specific [place] 1.022 Urine Protein 30 mg/dL Urine Glucose (UA) NEG mg/dL Urine Ketones NEG mg/dL Urine Occult Blood NEG Urine Nitrite NEG Urine Bilirubin NEG Urine Urobilinogen 2.0 MG/DL Urine Leukocyte Esterase NEG Urine RBC 1 /hpf Urine WBC 1 /hpf Urine Squamous Epithelial 1 /hpf Cells Urine Mucus FEW /lpf Microscopic Urinalysis Comment CULT NOT INDICATED Vital Signs Date Time Temp Pulse Resp B/P Pulse Ox O2 Delivery O2 Flow Rate FiO2 03/02/17 11:13 98.2 89 14 121/69 98 Differential Diagnosis Hyperemesis gravidarum versus electrolyte abnormality versus UTI versus gastritis versus other Narrative Course Patient is a 26-year-old female presented to the emergency department evaluation of nausea vomiting secondary to her . She states that she has been unable to keep down food or fluids since the onset of her . She reports being sent to emergency Department by her piece dyer today. Patient's vital signs are stable, labs ordered and pending. CBC, chemistry, UA, lipase are reviewed and are unremarkable, there is no electrolyte abnormality or concentration of her urine to suggest that she is unable to tolerate oral fluid intake. Discussed with Dr. Patel who recommended patient be prescribed Phenergan 25 mg tablets #20. Patient to continue routine care, she was encouraged return to emergency department for any new or worsening symptoms. Patient is stable for discharge. Diagnosis Primary Impression: Nausea/vomiting in Referrals: Jessica Patel MD As scheduled and as needed Patient Instructions: General Instructions, at 15 to 18 Weeks (ED) Additional Instructions: Follow-up with her piece dyer as scheduled and as needed Maintain adequate fluid intake Take medications as previously prescribed Return to emergency department for any new or worsening symptoms Med/Other Pt SpecificInfo: Prescription(s) given Scripts Promethazine (Phenergan)25 Mg [id number] Mg PO Q8HR PRN (NAUSEA OR VOMITING) #20 TAB Ref 0 Prov:Laurie Kim 03/02/17 Disposition: 01 DISCHARGE HOME Condition: Stable Laurie Kim Mar 02, 2017 11:54
[2017-03-02 12:05] LABS: AUTOMATED NEUTROPHIL # 5.7 TH/MM3 (1.8-7.7); BASOPHIL % 0.5 % (0.0-2.0); EOSINOPHIL % 0.5 % (0.0-4.0); HEMATOCRIT 34.8 % (35.0-46.0); HEMO FLAGS DIFF FINAL; LYMPH % 22.7 % (9.0-44.0); LYMPHOCYTE # 1.8 TH/MM3 (1.0-4.8); MEAN CELL VOLUME 79.7 FL (80.0-100.0); MEAN CORPUSCULAR HEMOGLOBIN 26.2 PG (27.0-34.0); MEAN CORPUSCULAR HGB CONC 32.9 % (32.0-36.0); MONO % 5.6 % (0.0-8.0); NEUT % 70.7 % (16.0-70.0); PLATELET COUNT 352 TH/MM3 (150-450); RED BLOOD COUNT 4.36 MIL/MM3 (4.00-5.30); RED CELL DISTRIBUTION WIDTH 14.5 % (11.6-17.2); WHITE BLOOD COUNT 8.1 TH/MM3 (4.0-11.0)
[2017-03-02 12:27] LABS: ALT (GPT) 29 U/L (10-53); ANION GAP 6 MEQ/L (5-15); AST (GOT) 22 U/L (15-37); BLOOD UREA NITROGEN 5 MG/DL (7-18); CHLORIDE 107 MEQ/L (98-107); GLOMERULAR FILTRATION RATE 154 ML/MIN (>89); POTASSIUM 3.6 MEQ/L (3.5-5.1); SODIUM (NA) 137 MEQ/L (136-145)
[2017-03-02 12:29] LABS: ALKALINE PHOSPHATASE 59 U/L (45-117); TOTAL BILIRUBIN ADULT 0.4 MG/DL (0.2-1.0)
[2017-03-02 13:33] LABS: BLOOD, URINE NEG (NEG); COMMENT (UR) CULT NOT INDICATED; CULTURE IF INDICATED CULT NOT INDICATED; GLUCOSE,URINE NEG (NEG); KETONE, URINE NEG (NEG); MUCUS URINE FEW /lpf (OCC); NITRITE,URINE NEG (NEG); PH, URINE 8.5 (5.0-8.5); SQUAMOUS EPITHELIAL CELL URINE 1 /hpf (0-5); URINE COLOR YELLOW (YELLW/STRAW)
[2017-03-02] MEDS ORDERED: PROM25TA10 PO (13:52)
== END 2017-03-02 14:04 | disposition home or self-care (01) ==
LOC: NEPD 11:12
DX: O26.892 Other specified pregnancy related conditions, second trimester (principal); R11.2 Nausea with vomiting, unspecified; O21.9 Vomiting of pregnancy, unspecified; Z3A.15 15 weeks gestation of pregnancy
CPT/HCPCS: 80053; 81001; 83690; 85025; 96361; 96374; 99284; J2405; J7030

== ENCOUNTER → 2017-06-09 | Outpatient (CLI) | payer MEDICAID ==
[~2017-06-09] MED LIST changes: +PROM25TA10 PO
== END ==
LOC: HPND 09:03
PROVIDERS: ATTEND Obstetrics & Gynecology
DX: O36.63X0 Maternal care for excessive fetal growth, third trimester, not applicable or unspecified (principal)
CPT/HCPCS: 76816

== ENCOUNTER 2017-06-25 15:06 | Emergency (ER) | payer MEDICAID ==
[~2017-06-25] VITALS: Ht 165.1 cm; Wt 102.0 kg
--- NOTE | 2017-06-25 15:52 | PD ---
HPI Chief Complaint s/p fall Date Seen: Jun 25, 2017 Time Seen: 15:44 Travel History International Travel<30 Days: No Contact w/Intl Traveler<30Days: No Known Affected Area: No History of Present Illness HPI Pt is a 27y/o @ 31.4wks. She has PNC with Dr. Patel. She presents for evaluation after a fall. She reports that her sock caught on something sticking up from the carpet while going down the stairs and she fell forward, directly onto her abdomen and head, then started rolling. She reports abdominal pain, head pain, and back pain. She was initially brought to the ED but sent here first. Pt reports that she just recently started feeling FM. She hasn't felt much since her fall. She denies ctx, LOF, or VB. She is Rh positive. No complications this . Weeks Gestation: 31 Para: 4 : 5 Last Menstrual Period: Jun 25, 2017 History Past Medical History Medical History: Denies Significant Hx Obstetric History Obstetric History SVDx4 Past Surgical History Narrative Surgical cholecystectomy Family History Family History: Negative Social History Alcohol Use: No Tobacco Use: No Substance Abuse: No Allergies-Medications (Allergen,Severity, Reaction): Coded Allergies: morphine (Unverified Adverse Reaction, Severe, Itching, 04/14/17) acetaminophen (Unverified Adverse Reaction, Intermediate, Swelling, ) oxycodone (Unverified Adverse Reaction, Intermediate, Swelling, 04/14/17) Home Meds Active Scripts Promethazine (Phenergan) 25 Mg Tablet, 25 MG PO Q8HR Y for NAUSEA OR VOMITING, # 20 TAB 0 Refills Prov:Laurie Kim 03/02/17 Ondansetron (Zofran) 4 Mg Tab, 4 MG PO Q6HR Y for NAUSEA OR VOMITING, #20 TAB 0 Refills Prov:Khris Colón MD 01/06/17 Nitrofurantoin Monohydrate Macrocrystals (Macrobid) 100 Mg Cap, 100 MG PO BID for Infection for 7 Days, CAP 0 Refills Prov:Khris Colón MD 01/06/17 Review of Systems Except as stated in HPI: all other systems reviewed are Neg Physical Exam Narrative GENERAL: Well-nourished, well-developed patient. SKIN: Warm and dry. HEAD: Normocephalic and atraumatic. EYES: No scleral icterus. No injection or drainage. ENT: No nasal drainage noted. Mucous membranes pink. Airway patent. ABDOMEN/GI: Abdomen soft, non-tender, gravid EXTREMITIES: No cyanosis or edema. BACK: Nontender without obvious deformity. No CVA tenderness. NEUROLOGICAL: Awake and alert. Motor and sensory grossly within normal limits. FHT's: 145, 10x10 accelerations present, occasional mild variable decelerations present, moderate variability, age appropriate TOCO: rippling but no ctx Data Data Vital Signs Reviewed: Yes Orders Orders Vital Signs (Adult) .ON ADMISSION (06/25/17 15:40) ^ Labor Status (06/25/17 15:40) ^ Non Stress Test (06/25/17 15:40) Us Ob Bpp Wo Nst (06/25/17 15:40) Fibrinogen (06/25/17 15:40) Complete Blood Count With Diff (06/25/17 15:40) Labs Rh positive MDM Medical Record Reviewed: Yes Plan 27y/o @ 31.4wks s/p fall -- CBC, fibrinogen stat -- US/BPP to evaluate placenta and well being -- Rh+ -- toco with some irritability Will send labs and then to US. Once completed, to ED for medical clearance, then return to L&D for monitoring for at least 4 hours. Diagnosis Diagnosis: Primary Impression: Grand multiparity Additional Impressions: 31 weeks gestation of Status post fall Abdominal pain affecting Elvis Connors MD Jun 25, 2017 15:52
[2017-06-25 16:08] LABS: AUTOMATED NEUTROPHIL # 6.3 TH/MM3 (1.8-7.7); BASOPHIL % 0.4 % (0.0-2.0); EOSINOPHIL % 0.2 % (0.0-4.0); HEMATOCRIT 28.5 % (35.0-46.0); HEMOGLOBIN 9.2 GM/DL (11.6-15.3); LYMPH % 22.4 % (9.0-44.0); MEAN CELL VOLUME 78.5 FL (80.0-100.0); MEAN CORPUSCULAR HEMOGLOBIN 25.3 PG (27.0-34.0); MEAN CORPUSCULAR HGB CONC 32.3 % (32.0-36.0); MEAN PLATELET VOLUME 8.1 FL (7.0-11.0); MONO % 6.1 % (0.0-8.0); MONOCYTE # 0.5 TH/MM3 (0-0.9); NEUT % 70.9 % (16.0-70.0); PLATELET COUNT 363 TH/MM3 (150-450); RED BLOOD COUNT 3.63 MIL/MM3 (4.00-5.30); RED CELL DISTRIBUTION WIDTH 13.4 % (11.6-17.2); WHITE BLOOD COUNT 8.8 TH/MM3 (4.0-11.0)
[2017-06-25 17:11] VITALS: BP 110/65; PULSE 86; RESP 16; TEMP 98.8; O2SAT 100
--- NOTE | 2017-06-25 17:52 | PD ---
Physical Exam Narrative 27-year-old female was seen in OB department and sent ED for medical clearance. 27-year-old female, 31 week , fell down 7 steps today. Patient denies loss of consciousness. Patient states that she has pain in the back of the head. Patient denies any visual change. Patient denies any nausea vomiting. Patient denies any memory deficit. Patient complains of neck pain. Patient complains of low back pain. Patient denies any chest pain or shortness of breath. Patient denies abdominal pain. Patient denies any vaginal discharge or bleeding. Patient denies any focal weakness or numbness of extremity. Physical exam: Patient has mild tenderness to palpation on the occipital area of the scalp. No soft tissue swelling noted. Patient has moderate tenderness paraspinal area of cervical spine. No midline tenderness. No vomiting noted. Lungs clear. Cardiac vascular regular rate and rhythm. Patient has mild tenderness on palpation mid to low lumbar area. Negative straight leg raising. Neurologic exam normal. Abdomen exam done by OB. Data Data Last Documented VS Vital Signs Date Time Temp Pulse Resp B/P (MAP) Pulse Ox O2 Delivery O2 Flow Rate FiO2 06/25/17 17:11 98.8 86 16 110/65 (80) 100 Room Air Orders Orders Vital Signs (Adult) .ON ADMISSION (06/25/17 15:40) ^ Labor Status (06/25/17 15:40) ^ Non Stress Test (06/25/17 15:40) Ob Bpp Wo Nst (06/25/17 15:40) Fibrinogen (06/25/17 15:40) Complete Blood Count With Diff (06/25/17 15:40) Spine, Cervical - Lateral Only (06/25/17 17:26) Labs Laboratory Tests Test 06/25/17 15:50 White Blood Count 8.8 TH/MM3 Red Blood Count 3.63 MIL/MM3 Hemoglobin 9.2 GM/DL Hematocrit 28.5 % Mean Corpuscular Volume 78.5 FL Mean Corpuscular Hemoglobin 25.3 PG Mean Corpuscular Hemoglobin Concent 32.3 % Red Cell Distribution Width 13.4 % Platelet Count 363 TH/MM3 Mean Platelet Volume 8.1 FL Neutrophils (%) (Auto) 70.9 % Lymphocytes (%) (Auto) 22.4 % Monocytes (%) (Auto) 6.1 % Eosinophils (%) (Auto) 0.2 % Basophils (%) (Auto) 0.4 % Neutrophils # (Auto) 6.3 TH/MM3 Lymphocytes # (Auto) 2.0 TH/MM3 Monocytes # (Auto) 0.5 TH/MM3 Eosinophils # (Auto) 0.0 TH/MM3 Basophils # (Auto) 0.0 TH/MM3 CBC Comment DIFF FINAL Differential Comment Fibrinogen 349 mg/dL MDM Supervised Visit with JOSE: No Diagnosis Primary Impression: Grand multiparity Additional Impressions: Status post fall 31 weeks gestation of Abdominal pain affecting Cervical strain Qualified Codes: S16.1XXA - Strain of muscle, fascia and tendon at neck level , initial encounter Lumbar strain Qualified Codes: S39.012A - Strain of muscle, fascia and tendon of lower back , initial encounter Closed head injury Qualified Codes: S09.90XA - Unspecified injury of head, initial encounter Scripts No Active Prescriptions or Reported Meds Gonsalo Painting MD Jun 25, 2017 17:52
--- NOTE | 2017-06-25 18:11 | RADRPT ---
EXAM DATE/TIME: 06/25/2017 17:56 [facility] COMPARISON: No previous studies available for comparison. INDICATIONS : Pain post fall- Patient and consented for C-Spine X-Ray MEDICAL HISTORY : None. SURGICAL HISTORY : None. ENCOUNTER: Initial ACUITY: 1 day PAIN SCORE: 10/10 LOCATION: Neck. FINDINGS: A single lateral view of the cervical spine demonstrates straightening of the cervical lordosis. Yevgeniy tebral body height is maintained. No evidence of spondylolisthesis.the level of T1. Prevertebral so ft tissues are normal in thickness. CONCLUSION: Straightening of the cervical lordosis. Otherwise negative lateral view. Ross Mtz MD on June 25, 2017 at 18:09 Board Certified Radiologist. This report was verified electronically.
[2017-06-25] MEDS ORDERED: ACETAMINOPHEN 325 MG TAB PO ONE ×2 (21:45)
== END 2017-06-26 07:24 | disposition home or self-care (01) ==
LOC: HOBED 15:06
DX: O9A.213 Injury, poisoning and certain other consequences of external causes complicating pregnancy, third trimester (principal); S16.1XXA Strain of muscle, fascia and tendon at neck level, initial encounter; S39.012A Strain of muscle, fascia and tendon of lower back, initial encounter; S09.90XA Unspecified injury of head, initial encounter; R10.9 Unspecified abdominal pain; O09.43 Supervision of pregnancy with grand multiparity, third trimester; W10.9XXA Fall (on) (from) unspecified stairs and steps, initial encounter; Z3A.31 31 weeks gestation of pregnancy
CPT/HCPCS: 36415; 59025; 72020; 76819; 85025; 85384

== ENCOUNTER 2017-07-22 10:05 | Emergency (ER) | payer MEDICAID ==
[~2017-07-22 10:05] MED LIST changes: +IRON100P2 IV; -MACR100C2 PO; -PROM25TA10 PO; -ZOFR4TAB PO
--- NOTE | 2017-07-22 11:26 | PD ---
HPI Chief Complaint abd pain Date Seen: Jul 22, 2017 Time Seen: 11:19 Travel History International Travel<30 Days: No Contact w/Intl Traveler<30Days: No Known Affected Area: No History of Present Illness HPI Pt is a 27y/o @ 35.3wks. She has PNC with Dr. Patel. is c/ b anemia for which she obtains iron infusions. She was having an infusion today and reported constant/sharp abdominal pain which led to d/c of the infusion and they sent her here for eval. She reports that this pain cocurred approximately at 9am. It has resolved. She denies LOF or VB. No ctx. +FM. Weeks Gestation: 35 Para: 4 : 5 Last Menstrual Period: Jul 22, 2017 History Past Medical History Narrative Medical anemia Obstetric History Obstetric History SVDx4 Past Surgical History Narrative Surgical wisdom teeth extraction cholecystectomy Family History Family History: Negative Social History Alcohol Use: No Tobacco Use: No Substance Abuse: No Allergies-Medications (Allergen,Severity, Reaction): Coded Allergies: morphine (Verified Adverse Reaction, Severe, Itching, 07/20/17) acetaminophen (Verified Adverse Reaction, Intermediate, Swelling, 07/20/17 ) oxycodone (Verified Adverse Reaction, Intermediate, Swelling, 07/20/17) Home Meds Reported Medications Iron Sucrose (Venofer) 100 Mg Iron/5 Ml Vial, 200 MG IV thu07/20/17 Review of Systems Except as stated in HPI: all other systems reviewed are Neg Physical Exam Narrative General: well developed, well nourished, no acute distress HEENT: normocephalic atraumatic, extraocular movements intact, neck supple Abdomen: bowel sounds present, soft, gravid, nontender, nondistended Uterus: fundus non-tender Extremities: full range of motion Skin: normal coloration, no rashes, no suspicious skin lesions noted Neurologic: cranial nerves 2-12 grossly intact, normal muscle tone, normal gait Psychiatric: normal mood and affect, appropriate FHTs: 140s, +accels, no decels, moderate variability, reactive [place]: quiet Cvx: 1.5/30/-3 Data Data Vital Signs Reviewed: Yes Orders Orders Vital Signs (Adult) .ON ADMISSION (07/22/17 11:03) ^ Labor Status (07/22/17 11:03) Urinalysis - C+S If Indicated (07/22/17 11:03) Ceftriaxone Inj (Rocephin Inj) (07/22/17 12:15) MDM Plan 27y/o @ 35.3wks with 1. abdominal pain -- toco quiet and cvx 1.5cm -- UA with moderate LE and trace blood; send for UCx and tx with 1g rocephin IV x1 2. -- NST reactive -- encouraged PNVs 3. anemia -- stable to return to iron infusion dispo: d/c Diagnosis Diagnosis: Primary Impression: Abdominal pain during in third trimester Additional Impressions: 35 weeks gestation of Anemia UTI (urinary tract infection) during [facility] multiparity with current Elvis Connors MD Jul 22, 2017 11:26
[2017-07-22 11:32] LABS: BLOOD, URINE NEG (NEG); COMMENT (UR) CULT NOT INDICATED; CULTURE IF INDICATED CULT NOT INDICATED; GLUCOSE,URINE NEG (NEG); KETONE, URINE NEG (NEG); NITRITE,URINE NEG (NEG); SQUAMOUS EPITHELIAL CELL URINE 6 /hpf (0-5); URINE COLOR YELLOW (YELLW/STRAW)
[2017-07-22] MEDS ORDERED: cefTRIAXone INJ 1,000 MG in SODIUM CHLORIDE 0.9% INJ 100 ML IV ONE (12:15)
== END 2017-07-22 12:08 | disposition home or self-care (01) ==
LOC: HOBED 10:05
DX: O26.893 Other specified pregnancy related conditions, third trimester (principal); O23.43 Unspecified infection of urinary tract in pregnancy, third trimester; O99.013 Anemia complicating pregnancy, third trimester; Z3A.35 35 weeks gestation of pregnancy
CPT/HCPCS: 59025; 81001; 96365; 99284; J0696

== ENCOUNTER 2017-08-17 04:14 | Inpatient (IN) | payer MEDICAID ==
[2017-08-17] VITALS (15 sets, daily range): BP systolic 121–163; BP diastolic 76–103; PULSE 56–144; RESP 16–28; TEMP 97.6–98; O2SAT 99
[~2017-08-17] VITALS: Ht 162.6 cm; Wt 103.0 kg
[2017-08-17] MEDS ORDERED: LIDOCAINE HCL 1% 50 ML VIAL INFIL PRN (04:45)
[2017-08-17] MEDS ORDERED: ONDANSETRON HCL 4 MG/2 ML VIAL IV PUSH PRN (04:45)
[2017-08-17] MEDS ORDERED: NS 500 ML BOLUS IV PRN (04:45)
[2017-08-17] MEDS ORDERED: OXYTOCIN 30 UNITS/NS 500ML PREMIX IV SCH (04:45)
[2017-08-17] MEDS ORDERED: OXYTOCIN 30 UNITS 500ML PREMIX IV ONE (04:45)
[2017-08-17] MEDS ORDERED: CITRIC ACID-SODIUM CITRATE LIQ 30 ML UDC PO SCH (04:45)
[2017-08-17] MEDS ORDERED: MINERAL OIL 10 ML VIAL TOPICAL PRN (04:45)
[2017-08-17] MEDS ORDERED: NS 1000 ML IV PRN (04:45)
[2017-08-17] MEDS ORDERED: LACTATED RINGER'S 1000 ML IV SCH (04:45)
[2017-08-17] MEDS ORDERED: LIDOCAINE HCL 1% 50 ML VIAL I-DERMAL PRN (04:45)
[2017-08-17] MEDS ORDERED: LACTATED RINGER'S 1000 ML BOLUS IV PRN (04:45)
[2017-08-17 05:34] LABS: AUTOMATED NEUTROPHIL # 6.4 TH/MM3 (1.8-7.7); BASOPHIL # 0.1 TH/MM3 (0-0.2); BASOPHIL % 0.6 % (0.0-2.0); EOSINOPHIL % 0.2 % (0.0-4.0); HEMO FLAGS DIFF FINAL; LYMPH % 28.2 % (9.0-44.0); LYMPHOCYTE # 2.8 TH/MM3 (1.0-4.8); MEAN CORPUSCULAR HEMOGLOBIN 26.6 PG (27.0-34.0); MEAN CORPUSCULAR HGB CONC 33.3 % (32.0-36.0); MONO % 5.6 % (0.0-8.0); NEUT % 65.4 % (16.0-70.0); PLATELET COUNT 250 TH/MM3 (150-450); RED BLOOD COUNT 4.12 MIL/MM3 (4.00-5.30); RED CELL DISTRIBUTION WIDTH 17.1 % (11.6-17.2); WHITE BLOOD COUNT 9.8 TH/MM3 (4.0-11.0)
[2017-08-17 05:48] LABS: BACTERIA, URINE RARE /hpf; BLOOD, URINE TRACE (NEG); COMMENT (UR) CULTURE INDICATED; CULTURE IF INDICATED CULTURE INDICATED; GLUCOSE,URINE NEG (NEG); KETONE, URINE NEG (NEG); MUCUS URINE MANY /lpf (OCC); NITRITE,URINE NEG (NEG); PH, URINE 6.5 (5.0-8.5); SQUAMOUS EPITHELIAL CELL URINE 15 /hpf (0-5); URINE COLOR YELLOW (YELLW/STRAW)
[2017-08-17] MEDS ORDERED: diphenhydrAMINE HCL 50 MG/ML VIAL IV PRN (06:15)
--- NOTE | 2017-08-17 06:54 | HHI.HP ---
HPI Chief Complaint Induction of labor Date Seen: Aug 17, 2017 Travel History International Travel<30 Days: No Contact w/Intl Traveler<30Days: No Known Affected Area: No History of Present Illness HPI Patient is a 27 year old at 39-1/7 weeks gestation who presents today for induction of labor. She started having contractions this morning around 2 AM. Contractions have progressively increased in intensity and frequency. She denies any vaginal bleeding or discharge. No gush or leaking of fluid. Positive movement. History Past Medical History Narrative Medical Anemia Obstetric History Obstetric History s/p x 4 Past Surgical History Narrative Surgical Cholecystectomy 2014 Family History Family History: Negative Social History Alcohol Use: No Tobacco Use: No Substance Abuse: No Allergies-Medications (Allergen,Severity, Reaction): Coded Allergies: morphine (Verified Adverse Reaction, Severe, Itching, 07/31/17) acetaminophen (Verified Adverse Reaction, Intermediate, Swelling, 07/31/17) oxycodone (Verified Adverse Reaction, Intermediate, Swelling, 07/31/17) Home Meds Reported Medications Iron Sucrose (Venofer) 100 Mg Iron/5 Ml Vial, 200 MG IV thu07/20/17 Review of Systems Except as stated in HPI: all other systems reviewed are Neg General / Constitutional: No: Fever, Chills Eyes: No: Visual changes HENT: No: Headaches Cardiovascular: No: Chest Pain or Discomfort Respiratory: No: Cough, Short of Breath Gastrointestinal: No: Nausea, Vomiting, Abdominal Pain Genitourinary: Pelvic Pain, No: Dysuria, Discharge, Vaginal Bleeding Musculoskeletal: No: Edema Neurologic: No: Headache Psychiatric: No: Substance Abuse Physical Exam Narrative GENERAL: Well-nourished, well-developed patient. SKIN: Warm and dry. HEAD: Normocephalic and atraumatic. EYES: No scleral icterus. No injection or drainage. ENT: No nasal drainage noted. Mucous membranes pink. Airway patent. NECK: Supple, trachea midline. No JVD. CARDIOVASCULAR: Regular rate and rhythm without murmurs, gallops, or rubs. RESPIRATORY: Breath sounds equal bilaterally. No accessory muscle use. ABDOMEN/GI: Abdomen soft, non-tender, bowel sounds present, no rebound, no guarding Gravid to 39 weeks size GENITOURINARY: External Genitalia: intact and normal in appearance BUS glands: normal Cervix: midposition Dilatation: 8-9 Effacement: 100 Station: -1 Presentation: vertex Membranes: intact, bulging Uterine Contractions: q 2-3min FHT's: Category: I Baseline: 130 Reactive: + Variability: moderate Decels: none EXTREMITIES: No cyanosis or edema. BACK: Nontender without obvious deformity. NEUROLOGICAL: Awake and alert. Motor and sensory grossly within normal limits. Normal speech. Caprini VTE Risk Assessment Caprini VTE Risk Assessment: No/Low Risk (score <= 1) Caprini Risk Assessment Model Point Value = 1 Point Value = 2 Point Value = 3 Point Value = 5 Age 41-60 Minor surgery BMI > 25 kg/m2 Swollen legs Varicose veins or History of unexplained or recurrent spontaneous Oral contraceptives or hormone replacement Sepsis (< 1 month) Serious lung disease, including pneumonia (< 1 month) Abnormal pulmonary function Acute myocardial infarction Congestive heart failure (< 1 month) History of inflammatory bowel disease Medical patient at bed rest Age 61-74 Arthroscopic surgery Major open surgery (> 45 min) Laparoscopic surgery (> 45 min) Malignancy Confined to bed (> 72 hours) Immobilizing plaster cast Central venous access Age >= 75 History of VTE Family history of VTE Factor V Leiden Prothrombin [id number] Lupus anticoagulant Anticardiolipin antibodies Elevated serum homocysteine Heparin-induced thrombocytopenia Other congenital or acquired thrombophilia Stroke (< 1 month) Elective arthroplasty Hip, pelvis, or leg fracture Acute spinal cord injury (< 1 month) Prophylaxis Regimen Total Risk Factor Score Risk Level Prophylaxis Regimen 0-1 Low Early ambulation 2 Moderate Order ONE of the following: *Sequential Compression Device (SCD) *Heparin 5000 units SQ BID 3-4 Higher Order ONE of the following medications: *Heparin 5000 units SQ TID *Enoxaparin/Lovenox 40 mg SQ daily (WT < 150 kg, CrCl > 30 mL/min) *Enoxaparin/Lovenox 30 mg SQ daily (WT < 150 kg, CrCl > 10-29 mL/min) *Enoxaparin/Lovenox 30 mg SQ BID (WT < 150 kg, CrCl > 30 mL/min) AND/OR *Sequential Compression Device (SCD) 5 or more Highest Order ONE of the following medications: *Heparin 5000 units SQ TID (Preferred with Epidurals) *Enoxaparin/Lovenox 40 mg SQ daily (WT < 150 kg, CrCl > 30 mL/min) *Enoxaparin/Lovenox 30 mg SQ daily (WT < 150 kg, CrCl > 10-29 mL/min) *Enoxaparin/Lovenox 30 mg SQ BID (WT < 150 kg, CrCl > 30 mL/min) AND *Sequential Compression Device (SCD) Data Data Vital Signs Reviewed: Yes Orders Orders Lactated Ringer's 1000 Ml Inj (Lr 1000 M (08/17/17 04:45) Lactated Ringer's 1000 Ml Inj (Lr 1000 M (08/17/17 04:45) Sodium Chlorid 0.9% 500 Ml Inj (Ns 500 M (08/17/17 04:45) Sodium Chlor 0.9% 1000 Ml Inj (Ns 1000 M (08/17/17 04:45) Lidocaine 1% Inj (50 Ml) (Xylocaine 1% I (08/17/17 04:45) Citric Acid-Sodium Citrate Liq (Bicitra (08/17/17 04:45) Ondansetron Inj (Zofran Inj) (08/17/17 04:45) Fentanyl Inj (Fentanyl Inj) (08/17/17 04:45) Fentanyl Inj (Fentanyl Inj) (08/17/17 04:45) Oxytocin 30 Units-500ml Premix (Pitocin (08/17/17 04:45) Lidocaine 1% Inj (50 Ml) (Xylocaine 1% I (08/17/17 04:45) Light Mineral Oil (Muri-Lube Oil) (08/17/17 04:45) Oxytocin 30 Units-500ml Premix (Pitocin (08/17/17 04:45) Admit To Inpatient (08/17/17 ) Vital Signs (Adult) .Per protocol (08/17/17 04:47) Activity Oob Ad Tish (08/17/17 04:47) Heart (08/17/17 04:47) Amnioinfusion (08/17/17 04:47) Urinary Catheter Management .ONCE (08/17/17 04:47) Diet Liquid (08/17/17 Breakfast) Complete Blood Count With Diff (08/17/17 04:47) Hold Clot (08/17/17 04:47) Abo/Rh Blood Type (08/17/17 04:47) Urinalysis - C+S If Indicated (08/17/17 04:47) Drug Screen, Random Urine (08/17/17 04:47) Resp Oxygen Non Rebreathe Mask (08/17/17 ) ^ Epidural / Intrathecal Infus (08/17/17 04:47) ^ Non Stress Test (08/17/17 04:50) Response To Medication .Post New Med Administration, Reaction (08/17/17 04:50) ^ Discontinue Medication (08/17/17 04:50) Urine Culture (08/17/17 04:23) Diphenhydramine Inj (Benadryl Inj) (08/17/17 06:15) Group B Strep: Negative Labs Laboratory Tests Test 08/17/17 04:23 08/17/17 04:36 Urine Color YELLOW Urine Turbidity HAZY Urine pH 6.5 Urine Specific [place] 1.025 Urine Protein 30 Urine Glucose (UA) NEG Urine Ketones NEG Urine Occult Blood TRACE Urine Nitrite NEG Urine Bilirubin SMALL Urine Urobilinogen 2.0 Urine Leukocyte Esterase LARGE Urine RBC 3 Urine WBC 31 Urine Squamous Epithelial Cells 15 Urine Bacteria RARE Urine Mucus MANY Microscopic Urinalysis Comment CULTURE INDICATED Urine Opiates Screen NEG Urine Barbiturates Screen NEG Urine Amphetamines Screen NEG Urine Benzodiazepines Screen NEG Urine Cocaine Screen NEG Urine Cannabinoids Screen NEG White Blood Count 9.8 Red Blood Count 4.12 Hemoglobin 11.0 Hematocrit 33.0 Mean Corpuscular Volume 80.0 Mean Corpuscular Hemoglobin 26.6 Mean Corpuscular Hemoglobin Concent 33.3 Red Cell Distribution Width 17.1 Platelet Count 250 Mean Platelet Volume 9.3 Neutrophils (%) (Auto) 65.4 Lymphocytes (%) (Auto) 28.2 Monocytes (%) (Auto) 5.6 Eosinophils (%) (Auto) 0.2 Basophils (%) (Auto) 0.6 Neutrophils # (Auto) 6.4 Lymphocytes # (Auto) 2.8 Monocytes # (Auto) 0.5 Eosinophils # (Auto) 0.0 Basophils # (Auto) 0.1 CBC Comment DIFF FINAL Differential Comment Date/Time Source Procedure Growth Status 08/17/17 04:23 Urine Clean Catch Urine Culture Pending Received Assessment/Plan Assessment and Plan 27 year old at 39-1/7 weeks gestation. 1. IUP- Category I tracing, reassuring. 2. Scheduled for IOL today, however presenting in spontaneous labor today. Will augment PRN with Pitocin. 3. GBS negative. 4. Anticipate vaginal delivery. dw Sarah Downey MD, R3 Aug 17, 2017 06:54
--- NOTE | 2017-08-17 07:14 | PD.OB.DELI ---
Weeks gestation: 39 Pt started active labor?: Yes Artificial rupture of membrane: No Anesthesia: None Episiotomy: None Vaginal Delivery: Normal Presentation: Occiput anterior Nuchal Cord: x1 Delayed cord clamping (45 sec): Yes Infant: Female Delivery date: Aug 17, 2017 Delivery time: 07:02 One Minute : 8 Five Minute : 9 Weight: 3085g Placenta: Spontaneous delivery, Intact, 3 vessel cord Laceration: No lacerations (right periurethral skid imtiaz ) Estimated blood loss: 100cc Additional Information Supervised by Dr. Biswas. Sarah Castellanos MD, R3 Aug 17, 2017 07:14
[2017-08-17] MEDS ORDERED: OXYTOCIN 30 UNITS-500ML PREMIX 500 ML IV SCH (07:15)
[2017-08-17] MEDS ORDERED: ZOLPIDEM TARTRATE 5 MG TAB PO PRN (07:15)
[2017-08-17] MEDS ORDERED: ACETAMINOPHEN 325 MG TAB PO PRN (07:15)
[2017-08-17] MEDS ORDERED: oxyCODONE/ACETAMINOPHEN 5 MG/325 MG TAB PO PRN ×2 (07:15)
[2017-08-17] MEDS ORDERED: ALUMINUM/MAGNESIUM/SIMETH 30 ML CUP PO PRN (07:15)
[2017-08-17] MEDS ORDERED: DOCUSATE SODIUM 50 MG/SENNA 8.6 MG TAB PO PRN (07:15)
[2017-08-17] MEDS ORDERED: BENZOCAINE 20% TOPICAL SPRAY 60 ML CAN TOPICAL PRN (07:15)
[2017-08-17] MEDS ORDERED: SODIUM CHLORIDE 0.9% FLUSH 10 ML FLUSH IV FLUSH PRN (07:15)
[2017-08-17] MEDS ORDERED: ONDANSETRON ODT 4 MG TAB PO PRN (07:15)
[2017-08-17] MEDS ORDERED: WITCH HAZEL 50%/GLYCERIN 12.5% 40 PAD JAR TOPICAL PRN (07:15)
[2017-08-17] MEDS: IBUPROFEN 800 MG TAB PO PRN ×2 (08:23→17:01)
[2017-08-17] MEDS ORDERED: SODIUM CHLORIDE 0.9% FLUSH 10 ML FLUSH IV FLUSH SCH (09:00)
[2017-08-17] MEDS ORDERED: MISOPROSTOL 200 MCG TAB ONE (09:36)
[2017-08-17] MEDS ORDERED: MISOPROSTOL 200 MCG TAB RECTAL ONE (09:45)
[2017-08-17] MEDS ORDERED: CARBOPROST TROMETHAMINE 250 MCG/ML VIAL ONE (15:35)
[2017-08-17] MEDS ORDERED: OXYTOCIN 30 UNITS-500ML PREMIX 500 ML ONE (15:37)
[2017-08-17] MEDS ORDERED: CARBOPROST TROMETHAMINE 250 MCG/ML VIAL IM ONE ×2 (15:45→18:00)
[2017-08-17] MEDS ORDERED: DIPHTH/TETANUS/ACEL PERTUSSIS (BOOSTER) 0.5 ML VIAL/PFS IM ONE (16:00)
[2017-08-17] MEDS ORDERED: MEASLES, MUMPS, RUBELLA VACCINE 0.5 ML VIAL SQ ONE (16:00)
[2017-08-17] MEDS ORDERED: ALUMINUM/MAGNESIUM/SIMETH 30 ML CUP PO ONE (16:45)
[2017-08-17] MEDS ORDERED: HYDROmorphone HCL PF 2 MG/ML VIAL IV PUSH ONE (17:00)
[2017-08-17 17:23] LABS: HEMATOCRIT 33.8 % (35.0-46.0); REVIEW FLAG FINAL
[2017-08-17] MEDS ORDERED: HYDROmorphone HCL PF 2 MG/ML VIAL IV ONE (18:00)
--- NOTE | 2017-08-17 19:38 | PD.CONS ---
[facility] By Dr Patel Reason for Consult chest pain Primary Care Physician No Primary Care Physician Diagnoses: History of Present Illness This is a 27-year-old female without significant past medical history who complained of chest pain today. The patient is currently hospitalized in the mother-baby unit and had a vaginal delivery at 39 weeks gestation this morning. After that the patient had been reportedly having profuse bleeding for which the patient was treated with Hemabate after which she complain of severe 10 over 10 chest pain, nonradiating associated with dizziness, diaphoresis, nausea but no vomiting. Patient also states that she became short of breath. The patient states that after pain medication given her chest pain is 5/10 in intensity and dizziness and shortness of breath have improved. The patient otherwise denies cough, fevers, chills, denies leg edema or pain. Review of Systems As per HPI other systems reviewed by me and negative. Past Family Social History Allergies: Coded Allergies: morphine (Verified Adverse Reaction, Severe, Itching, 08/17/17) acetaminophen (Verified Adverse Reaction, Intermediate, Swelling, 07/31/17) oxycodone (Verified Adverse Reaction, Intermediate, Swelling, 08/17/17) Past Medical History Denies Past Surgical History Significant only for cholecystectomy 2014. Reported Medications Iron IV infusions. Active Ordered Medications Current Medications Medications (Trade) Dose Ordered Sig/Jaime Route Start Time Stop Time Status Last Admin (Xylocaine 1% Inj (50 ml)) 0.1 ml UNSCH X1 PRN I-DERMAL 08/17/17 04:45 08/24/17 04:44 (Bicitra Liq) 30 ml FRUIT HARVEST WORKER PO 08/17/17 04:45 08/20/17 04:44 (Xylocaine 1% Inj (50 ml)) 10 ml UNSCH X1 PRN INFIL 08/17/17 04:45 08/24/17 04:44 (NS Flush) 2 ml BID IV FLUSH 08/17/17 09:00 (NS Flush) 2 ml UNSCH PRN IV FLUSH 08/17/17 07:15 (Tylenol) 650 mg Q4H PRN PO 08/17/17 07:15 (Motrin) 800 mg Q8H PRN PO 08/17/17 07:15 08/17/17 17:01 (Americaine 20% Top Spr) 1 spray Q4H PRN TOPICAL 08/17/17 07:15 08/17/17 10:23 (Tucks Pads) 1 applic QID PRN TOPICAL 08/17/17 07:15 08/17/17 10:23 (Julia-Colace) 2 tab Q12H PRN PO 08/17/17 07:15 (Ambien) 5 mg HS PRN PO 08/17/17 07:15 (Mag-Al Plus Susp Liq) 15 ml Q8H PRN PO 08/17/17 07:15 (Zofran Odt) 4 mg Q6H PRN PO 08/17/17 07:15 (Imodium) 2 mg Q6H PRN PO 08/17/17 19:45 Family History Denies family history of blood clots, heart disease. Social History Denies smoking, illicit drug use or alcohol use. Physical Exam Vital Signs Vital Signs Date Time Temp Pulse Resp B/P (MAP) Pulse Ox O2 Delivery O2 Flow Rate FiO2 08/17/17 17:00 61 08/17/17 16:06 144/90 (108) 08/17/17 16:06 61 28 08/17/17 16:06 99 08/17/17 16:05 163/103 (123) 08/17/17 10:23 98.0 60 16 148/89 (108) 99 08/17/17 09:00 80 18 121/79 (93) 99 08/17/17 08:16 56 134/85 (101) 08/17/17 08:02 63 123/77 (92) 08/17/17 08:00 19 08/17/17 07:46 56 132/77 (95) 08/17/17 07:36 18 08/17/17 07:31 60 129/76 (93) 08/17/17 07:30 97.6 08/17/17 07:30 19 08/17/17 07:16 61 133/85 (101) 08/17/17 07:15 18 08/17/17 07:10 67 132/91 (105) Physical Exam GENERAL: This is a well-nourished, well-developed patient, in no apparent distress. SKIN: No rashes, ecchymoses or lesions. Cool and dry. HEAD: Atraumatic. Normocephalic. No temporal or scalp tenderness. EYES: Pupils equal round and reactive. Extraocular motions intact. No scleral icterus. No injection or drainage. ENT: Nose without bleeding, purulent drainage or septal hematoma. Throat without erythema, tonsillar hypertrophy or exudate. Uvula midline. Airway patent. NECK: Trachea midline. No JVD or lymphadenopathy. Supple, nontender, no meningeal signs. CARDIOVASCULAR: Regular rate and rhythm without murmurs, gallops, or rubs. RESPIRATORY: Clear to auscultation. Breath sounds equal bilaterally. No wheezes , rales, or rhonchi. GASTROINTESTINAL: Abdomen soft, non-tender, nondistended. No hepato-splenomegaly , or palpable masses. No guarding. MUSCULOSKELETAL: Extremities without clubbing, cyanosis, or edema. No joint tenderness, effusion, or edema noted. No calf tenderness. Negative Homans sign bilaterally. NEUROLOGICAL: Awake and alert. Cranial nerves II through XII intact. Motor and sensory grossly within normal limits. Five out of 5 muscle strength in all muscle groups. Normal speech. Laboratory Laboratory Tests Test 08/17/17 04:23 08/17/17 04:36 08/17/17 16:56 Urine Color YELLOW Urine Turbidity HAZY Urine pH 6.5 Urine Specific [place] 1.025 Urine Protein 30 Urine Glucose (UA) NEG Urine Ketones NEG Urine Occult Blood TRACE Urine Nitrite NEG Urine Bilirubin SMALL Urine Urobilinogen 2.0 Urine Leukocyte Esterase LARGE Urine RBC 3 Urine WBC 31 Urine Squamous Epithelial Cells 15 Urine Bacteria RARE Urine Mucus MANY Microscopic Urinalysis Comment CULTURE INDICATED Urine Opiates Screen NEG Urine Barbiturates Screen NEG Urine Amphetamines Screen NEG Urine Benzodiazepines Screen NEG Urine Cocaine Screen NEG Urine Cannabinoids Screen NEG White Blood Count 9.8 Red Blood Count 4.12 Hemoglobin 11.0 11.1 Hematocrit 33.0 33.8 Mean Corpuscular Volume 80.0 Mean Corpuscular Hemoglobin 26.6 Mean Corpuscular Hemoglobin Concent 33.3 Red Cell Distribution Width 17.1 Platelet Count 250 Mean Platelet Volume 9.3 Neutrophils (%) (Auto) 65.4 Lymphocytes (%) (Auto) 28.2 Monocytes (%) (Auto) 5.6 Eosinophils (%) (Auto) 0.2 Basophils (%) (Auto) 0.6 Neutrophils # (Auto) 6.4 Lymphocytes # (Auto) 2.8 Monocytes # (Auto) 0.5 Eosinophils # (Auto) 0.0 Basophils # (Auto) 0.1 CBC Comment DIFF FINAL Differential Comment Date/Time Source Procedure Growth Status 08/17/17 04:23 Urine Clean Catch Urine Culture Pending Received Result Diagram: 08/17/17 1656 Imaging EKG reviewed by me showed sinus rythm with first degree av block with minimal st elevation ( less than 1 mm) in inferior leads, Q waves in leads II and III and inverted T waves in lead III. Assessment and Plan Problem List: (1) Chest pain ICD Code: R07.9 - Chest pain, unspecified Status: Acute (2) Vaginal delivery ICD Code: O80 - Encounter for full-term uncomplicated delivery Status: Acute (3) hemorrhage ICD Code: O72.1 - Other immediate hemorrhage Assessment and Plan 27-year-old female who presented to [facility] for induction of labor. Complain of chest pain after the patient was injected Hemabate. EKG reviewed by me showed sinus rhythm with a prescription block and some minimal less than [address] elevations in inferior leads with Q waves in leads 2 and lead 3. The ST elevation does not meet criteria for STEMI and given patient's age and risk factors CA less likely. I am more concerned for the patient having a pulmonary embolism given her state along with injection of Hemabate. I will order stat CT pulmonary angiogram to rule out PE as well as cardiac enzymes. Pain control of chest pain with Ofirmev and Motrin. Check CMP to check renal function. Repeat hemoglobin sent earlier shows a stable hemoglobin of 11.1. Continue to monitor CBC as patient is having some bleeding which as per nursing staff has improved. Avoid heparin or Lovenox while patient is bleeding. If PE is present then a hematology consultation may be needed if the patient still bleeding. Code Status Full code Discussed Condition With RN, patient. Bryan Sibley MD Aug 17, 2017 19:37
[2017-08-17] MEDS ORDERED: LOPERAMIDE HCL 2 MG CAP PO PRN (19:45)
[2017-08-17] MEDS ORDERED: LOPERAMIDE HCL 2 MG CAP PO ONE (19:45)
[2017-08-17 20:58] LABS: ALKALINE PHOSPHATASE 161 U/L (45-117); ALT (GPT) 65 U/L (10-53); ANION GAP 9 MEQ/L (5-15); AST (GOT) 70 U/L (15-37); BICARBONATE 17.7 MEQ/L (21.0-32.0); BLOOD UREA NITROGEN 7 MG/DL (7-18); CHLORIDE 109 MEQ/L (98-107); CREATINE KINASE 274 U/L (26-192); GLOMERULAR FILTRATION RATE 117 ML/MIN (>89); SODIUM (NA) 136 MEQ/L (136-145); TOTAL BILIRUBIN ADULT 0.3 MG/DL (0.2-1.0)
[2017-08-17 20:59] LABS: POTASSIUM 5.4 MEQ/L (3.5-5.1)
[2017-08-17 21:11] LABS: CKMB 3.1 NG/ML (0.5-3.6)
[2017-08-17] MEDS ORDERED: IOHEXOL 350 MG/ML 10 ML VIAL (for RAD DIAG) IVCONTRAST ONE (21:36)
--- NOTE | 2017-08-17 22:20 | RADRPT ---
EXAM DATE/TIME: 08/17/2017 21:59 [place] COMPARISON: No previous studies available for comparison. INDICATIONS : Chest pain; Child yesterday. IV CONTRAST: 75 cc Omnipaque 350 (iohexol) IV RADIATION DOSE: 16.85 CTDIvol (mGy) MEDICAL HISTORY : Child yesterday. SURGICAL HISTORY : None. ENCOUNTER: Initial ACUITY: 1 day PAIN SCALE: 5/10 LOCATION: Bilateral chest TECHNIQUE: Volumetric scanning of the chest was performed using a pulmonary embolism protocol MIP images were re constructed. Using automated exposure control and adjustment of the mA and/or kV according to patien t size, radiation dose was kept as low as reasonably achievable to obtain optimal diagnostic quality images. DICOM format image data is available electronically for review and comparison. Follow-up recommendations for detected pulmonary nodules are based at a minimum on nodule size and pa tient risk factors according to Fleischner Society Guidelines. FINDINGS: PULMONARY ARTERIES: No filling defects are seen in the pulmonary arteries through the segmental level. LUNGS: There is no consolidation or pneumothorax . No concerning pulmonary nodule is visualized. PLEURAE: There is no pleural thickening or pleural effusion. MEDIASTINUM: There is good visualization of the great vessels of the middle mediastinum. No evidence of mediastin al or hilar adenopathy/mass. CONCLUSION: The study is negative for pulmonary embolism. Ross Mtz MD on August 17, 2017 at 22:17 Board Certified Radiologist. This report was verified electronically.
[2017-08-18 00:40] VITALS: BP 112/72; PULSE 62; RESP 18; TEMP 98.4
[2017-08-18 05:54] LABS: AUTOMATED NEUTROPHIL # 6.9 TH/MM3 (1.8-7.7); BASOPHIL % 0.3 % (0.0-2.0); EOSINOPHIL % 0.3 % (0.0-4.0); HEMATOCRIT 31.2 % (35.0-46.0); HEMO FLAGS DIFF FINAL; LYMPH % 21.8 % (9.0-44.0); LYMPHOCYTE # 2.1 TH/MM3 (1.0-4.8); MEAN CELL VOLUME 81.1 FL (80.0-100.0); MEAN CORPUSCULAR HEMOGLOBIN 26.5 PG (27.0-34.0); MEAN CORPUSCULAR HGB CONC 32.7 % (32.0-36.0); MONO % 7.2 % (0.0-8.0); NEUT % 70.4 % (16.0-70.0); PLATELET COUNT 214 TH/MM3 (150-450); RED BLOOD COUNT 3.84 MIL/MM3 (4.00-5.30); RED CELL DISTRIBUTION WIDTH 17.4 % (11.6-17.2); WHITE BLOOD COUNT 9.8 TH/MM3 (4.0-11.0)
[2017-08-18 06:22] LABS: AST (GOT) 33 U/L (15-37); BICARBONATE 23.4 MEQ/L (21.0-32.0); BLOOD UREA NITROGEN 4 MG/DL (7-18); GLOMERULAR FILTRATION RATE 136 ML/MIN (>89)
[2017-08-18 06:23] LABS: ALT (GPT) 58 U/L (10-53)
[2017-08-18 06:31] LABS: ALKALINE PHOSPHATASE 142 U/L (45-117); ANION GAP 9 MEQ/L (5-15); CHLORIDE 106 MEQ/L (98-107); CREATINE KINASE 120 U/L (26-192); POTASSIUM 3.5 MEQ/L (3.5-5.1); SODIUM (NA) 138 MEQ/L (136-145); TOTAL BILIRUBIN ADULT 0.4 MG/DL (0.2-1.0)
[2017-08-18 08:00] VITALS: BP 123/80; PULSE 64; RESP 48; TEMP 98.5; O2SAT 100
--- NOTE | 2017-08-18 13:37 | HHI.OB ---
Subjective Post Day: 1 Objective Vitals/I&O Vital Signs Date Time Temp Pulse Resp B/P (MAP) Pulse Ox O2 Delivery O2 Flow Rate FiO2 08/18/17 08:00 98.5 64 48 123/80 (94) 100 08/18/17 00:40 98.4 62 18 112/72 (85) 08/17/17 17:00 61 08/17/17 16:06 144/90 (108) 08/17/17 16:06 61 28 08/17/17 16:06 99 08/17/17 16:05 163/103 (123) Objective Remarks GENERAL: Well-nourished, well-developed patient. CARDIOVASCULAR: Regular rate and rhythm without murmurs, gallops, or rubs. RESPIRATORY: Breath sounds equal bilaterally. No accessory muscle use. ABDOMEN/GI: Abdomen soft, non-tender. Fundus: Firm, non-tender at umbilicus. GENITOURINARY: Light to moderate bleeding. EXTREMITIES: No cyanosis or edema, non-tender, without signs of DVT. Medications and IVs Current Medications Medications (Trade) Dose Ordered Sig/Jaime Route Start Time Stop Time Status Last Admin (Xylocaine 1% Inj (50 ml)) 0.1 ml UNSCH X1 PRN I-DERMAL 08/17/17 04:45 08/24/17 04:44 (Bicitra Liq) 30 ml TRAIN CLERK PO 08/17/17 04:45 08/20/17 04:44 (Xylocaine 1% Inj (50 ml)) 10 ml UNSCH X1 PRN INFIL 08/17/17 04:45 08/24/17 04:44 (NS Flush) 2 ml BID IV FLUSH 08/17/17 09:00 (NS Flush) 2 ml UNSCH PRN IV FLUSH 08/17/17 07:15 (Tylenol) 650 mg Q4H PRN PO 08/17/17 07:15 (Motrin) 800 mg Q8H PRN PO 08/17/17 07:15 08/17/17 17:01 (Americaine 20% Top Spr) 1 spray Q4H PRN TOPICAL 08/17/17 07:15 08/17/17 10:23 (Tucks Pads) 1 applic QID PRN TOPICAL 08/17/17 07:15 08/17/17 10:23 (Julia-Colace) 2 tab Q12H PRN PO 08/17/17 07:15 (Ambien) 5 mg HS PRN PO 08/17/17 07:15 (Mag-Al Plus Susp Liq) 15 ml Q8H PRN PO 08/17/17 07:15 (Zofran Odt) 4 mg Q6H PRN PO 08/17/17 07:15 (Imodium) 2 mg Q6H PRN PO 08/17/17 19:45 Assessment/Plan Problem List: (1) Normal vaginal delivery ICD Codes: O80 - Encounter for full-term uncomplicated delivery (2) Anemia ICD Codes: D64.9 - Anemia, unspecified Assessment and Plan pt feeling good vss CT chest negative bleeding normal belle to be discontinued pt able to ambulate without difficulty, denies sob, chest pain or dizziness pt is not taking anything for pain, Motrin available if needed bonding with routine care Discharge Planning dc tomorrow Meg Huerta Aug 18, 2017 13:37
[2017-08-18 14:18] LABS: CREATINE KINASE 146 U/L (26-192)
--- NOTE | 2017-08-18 17:38 | EKG ---
Date Performed: 08/17/2017 Time Performed: 16:48:19 PTAGE: 27 years EKG: Sinus rhythm WITH FIRST DEGREE AV BLOCK ABNORMAL ECG Compared to prior electrocardiogram, With first degree A-V b lock is now present PREVIOUS TRACING : 12/25/2016 18.26 DOCTOR: Alfonso Reyes Interpretating Date/Time 08/18/2017 17:38:16
[2017-08-18] MEDS: IBUPROFEN 800 MG TAB PO PRN (18:24)
[2017-08-18 20:00] VITALS: BP 102/65; PULSE 88; RESP 18; TEMP 98.2; O2SAT 100
[2017-08-19] MEDS: IBUPROFEN 800 MG TAB PO PRN (05:34)
[2017-08-19 08:00] VITALS: BP 126/81; PULSE 54; RESP 16; TEMP 98.1
[2017-08-19] MEDS ORDERED: ACETAMINOPHEN/HYDROcodone 325 MG/5 MG TAB PO PRN (10:30)
--- NOTE | 2017-08-19 10:57 | HHI.OB ---
Subjective Post Day: 2 Objective Vitals/I&O Vital Signs Date Time Temp Pulse Resp B/P (MAP) Pulse Ox O2 Delivery O2 Flow Rate FiO2 08/19/17 08:00 98.1 54 16 126/81 (96) 08/18/17 20:00 98.2 88 18 102/65 (77) 100 Objective Remarks GENERAL: Well-nourished, well-developed patient. CARDIOVASCULAR: Regular rate and rhythm without murmurs, gallops, or rubs. RESPIRATORY: Breath sounds equal bilaterally. No accessory muscle use. ABDOMEN/GI: Abdomen soft, non-tender. Fundus: Firm, +2 Right shift, tender . GENITOURINARY: Light to moderate bleeding. EXTREMITIES: No cyanosis or edema, non-tender, without signs of DVT. Medications and IVs Current Medications Medications (Trade) Dose Ordered Sig/Jaime Route Start Time Stop Time Status Last Admin (Xylocaine 1% Inj (50 ml)) 0.1 ml UNSCH X1 PRN I-DERMAL 08/17/17 04:45 08/24/17 04:44 (Bicitra Liq) 30 ml TELEPATHIST PO 08/17/17 04:45 08/20/17 04:44 (Xylocaine 1% Inj (50 ml)) 10 ml UNSCH X1 PRN INFIL 08/17/17 04:45 08/24/17 04:44 (NS Flush) 2 ml BID IV FLUSH 08/17/17 09:00 (NS Flush) 2 ml UNSCH PRN IV FLUSH 08/17/17 07:15 (Tylenol) 650 mg Q4H PRN PO 08/17/17 07:15 (Motrin) 800 mg Q8H PRN PO 08/17/17 07:15 08/19/17 05:34 (Americaine 20% Top Spr) 1 spray Q4H PRN TOPICAL 08/17/17 07:15 08/17/17 10:23 (Tucks Pads) 1 applic QID PRN TOPICAL 08/17/17 07:15 08/17/17 10:23 (Julia-Colace) 2 tab Q12H PRN PO 08/17/17 07:15 (Ambien) 5 mg HS PRN PO 08/17/17 07:15 (Mag-Al Plus Susp Liq) 15 ml Q8H PRN PO 08/17/17 07:15 (Zofran Odt) 4 mg Q6H PRN PO 08/17/17 07:15 (Imodium) 2 mg Q6H PRN PO 08/17/17 19:45 ([place] 5-325 Mg) 1 tab Q4H PRN PO 08/19/17 10:30 Assessment/Plan Problem List: (1) Normal vaginal delivery ICD Codes: O80 - Encounter for full-term uncomplicated delivery (2) Anemia ICD Codes: D64.9 - Anemia, unspecified Assessment and Plan pt feeling ok c/o pain to right side of abd fundus +2 and shifted to right, pt states she had a clot last night and had just voided pt and nurse advised to encourage voiding and fundal massage we will follow pt taking Motrin we will order something stronger routine care Discharge Planning dc today Meg Huerta Aug 19, 2017 10:57
[2017-08-19] MEDS ORDERED: HYDR-3516 PO (13:52)
[2017-08-19] MEDS ORDERED: IBUP1TAB7 PO (13:52)
--- NOTE | 2017-08-19 13:52 | HHI.DS ---
Admission Date Aug 17, 2017 at 04:14 Discharge Date: Aug 19, 2017 Admitting Diagnosis TERM UTERINE CONTRACTIONS INDUCTION OF LABOR Diagnosis: (1) Chest pain ICD Codes: R07.9 - Chest pain, unspecified Status: Resolved (2) Vaginal delivery ICD Codes: O80 - Encounter for full-term uncomplicated delivery Status: Acute (3) hemorrhage ICD Codes: O72.1 - Other immediate hemorrhage Delivery Date: Aug 17, 2017 Vaginal Delivery: Normal Infant: Female Brief History Patient is a 27 year old at 39-1/7 weeks gestation who presents today for induction of labor. She started having contractions this morning around 2 AM. Contractions have progressively increased in intensity and frequency. She denies any vaginal bleeding or discharge. No gush or leaking of fluid. Positive movement. Hospital Course TERM INDUCTION POST HEMORRHAGE ROUTINE CARE Pt Condition on Discharge: Good Discharge Disposition: Discharge Home Discharge Instructions Diet Instructions: As Tolerated, No Restrictions Additional Diet Instructions: Drink at least 8 - 16 oz bottles of water a day Activities You Can Perform: Shower Only-No Bath, Sitz Bath Activities to Avoid: Lifting/Bending, Sexual Activity Additional Activity Instruc.: No driving until off pain medications Do not lift anything heavier than your baby in an infant carrier Follow up Referrals: INTERACTIVE MEDIA SPECIALIST - 2 Weeks @ [facility] New Medications: Hydrocodone/Acetaminophen (Hydrocodone-Acetamin 5-325 mg) 5 Mg-325 Mg Tablet 1 TAB PO Q4H PRN for moderate pain, #15 TAB Ibuprofen (Ibuprofen) 800 Mg Tab 800 MG PO Q8H PRN for CRAMPING, #30 TAB Discontinued Medications: Iron Sucrose (Venofer) 100 Mg Iron/5 Ml Vial 200 MG IV thu Meg Huerta Aug 19, 2017 13:52
== END 2017-08-19 16:06 | disposition home or self-care (01) | DRG 774 ==
LOC: H2EA 04:14 → H1EA 08:41
PROVIDERS: ADMIT Obstetrics & Gynecology; ATTEND Obstetrics & Gynecology
PROC: 10E0XZZ Delivery of Products of Conception, External Approach (ICD-10-PCS; principal; 2017-08-17)
DX: O69.81X0 Labor and delivery complicated by cord around neck, without compression, not applicable or unspecified (principal); O72.1 Other immediate postpartum hemorrhage; R07.9 Chest pain, unspecified; D64.9 Anemia, unspecified; O99.02 Anemia complicating childbirth; Z37.0 Single live birth; Z3A.39 39 weeks gestation of pregnancy
CPT/HCPCS: 71275; 80053; 80307; 81001; 82550; 82552; 84484; 85014; 85018; 85025; 87086; 93005; J1170; J1200; J2590; J3010; J7120; Q9967

== ENCOUNTER 2017-08-27 19:12 | Emergency (ER) | payer MEDICAID ==
[~2017-08-27 19:12] MED LIST changes: +HYDR-3516 PO; +IBUP1TAB7 PO; -IRON100P2 IV
[2017-08-27 19:13] VITALS: BP 121/78; PULSE 88; RESP 16; TEMP 99.1; O2SAT 99
[2017-08-27] MEDS ORDERED: SODIUM CHLOR 0.9% 1000 ML INJ 1,000 ML IV ONE (19:58)
--- NOTE | 2017-08-27 20:07 | PD ---
HPI Chief Complaint: Related Problem Time Seen by Provider: 19:43 Travel History International Travel<30 days: No Contact w/Intl Traveler<30days: No Traveled to known affect area: No History of Present Illness HPI 27-year-old female presents to the emergency department for evaluation of bleeding. Patient delivered 10 days ago here at [place]. She is a G5, P5. She was 39-1/7 weeks' gestation. She had a vaginal delivery. According to chart, she did have hemorrhage and had to be given Hemabate. She states she has been doing well. She had some mild vaginal bleeding and then it stops for couple days. However, yesterday worsened. She states is heavy with clots. She reports going through approximately 10-11 pads daily. Patient states she feels dizzy and lightheaded. She denies any syncope. No chest pain or shortness of breath. She reports abdominal cramping. Patient reports no chronic medical problems. She is currently taking Motrin for pain. Moderate severity. No exacerbating or alleviating factors. PFSH Past Medical History Arthritis: Yes Cancer: No Cardiovascular Problems: No Diminished Hearing: No Endocrine: No GERD: Yes Gestational Age in Weeks: 31 Genitourinary: No Headaches: Yes Immune Disorder: No Musculoskeletal: Yes Neurologic: No Psychiatric: No Reproductive: No Respiratory: No Immunizations Current: No ?: Not : 6 Para: 5 Miscarriage: 0 : 0 Past Surgical History Abdominal Surgery: Yes (GALLBLADDER) Cholecystectomy: Yes Social History Alcohol Use: No Tobacco Use: No Substance Use: No Allergies-Medications (Allergen,Severity, Reaction): Coded Allergies: morphine (Verified Adverse Reaction, Severe, Itching, 08/17/17) acetaminophen (Verified Adverse Reaction, Intermediate, Swelling, 07/31/17) oxycodone (Verified Adverse Reaction, Intermediate, Swelling, 08/17/17) Reported Meds & Prescriptions Reported Meds & Active Scripts Active Ibuprofen 800 Mg Tab 800 Mg PO Q8H PRN Hydrocodone-Acetamin 5-325 mg (Hydrocodone/Acetaminophen) 5 Mg-325 Mg Tablet 1 Tab PO Q4H PRN Review of Systems Except as stated in HPI: all other systems reviewed are Neg Physical Exam Narrative GENERAL: Well-nourished, well-developed female patient. SKIN: Focused skin assessment warm/dry. HEAD: Normocephalic. Atraumatic. EYES: No scleral icterus. No injection or drainage. NECK: Supple, trachea midline. No JVD or lymphadenopathy. CARDIOVASCULAR: Regular rate and rhythm without murmurs, gallops, or rubs. RESPIRATORY: Breath sounds equal bilaterally. No accessory muscle use. GASTROINTESTINAL: Abdomen soft and nondistended. Pelvic tenderness to palpation. MUSCULOSKELETAL: No cyanosis, or edema. BACK: Nontender without obvious deformity. No CVA tenderness. GENITOURINARY: Normal external genitalia without lesions or erythema. Vaginal vault with mild amount of blood. No cervical motion tenderness. Bilateral adnexa nontender without masses. Pelvic exam was done with RN at bedside. Data Data Last Documented VS Vital Signs Date Time Temp Pulse Resp B/P (MAP) Pulse Ox O2 Delivery O2 Flow Rate FiO2 08/27/17 19:13 99.1 88 16 121/78 (92) 99 Room Air Orders Orders Complete Blood Count With Diff (08/27/17 19:58) Comprehensive Metabolic Panel (08/27/17 19:58) Type And Screen (08/27/17 19:58) Us Pelvis Comp Flight Engineer Instructor/Non-Preg (08/27/17 ) Urinalysis - C+S If Indicated (08/27/17 19:58) Sodium Chlor 0.9% 1000 Ml Inj (Ns 1000 M (08/27/17 19:58) Labs Laboratory Tests Test 08/27/17 20:00 08/27/17 21:25 08/27/17 22:04 White Blood Count 9.5 TH/MM3 Red Blood Count 4.66 MIL/MM3 Hemoglobin 12.4 GM/DL Hematocrit 38.4 % Mean Corpuscular Volume 82.4 FL Mean Corpuscular Hemoglobin 26.7 PG Mean Corpuscular Hemoglobin Concent 32.4 % Red Cell Distribution Width 17.0 % Platelet Count 350 TH/MM3 Mean Platelet Volume 7.9 FL Neutrophils (%) (Auto) 61.4 % Lymphocytes (%) (Auto) 30.7 % Monocytes (%) (Auto) 6.5 % Eosinophils (%) (Auto) 1.0 % Basophils (%) (Auto) 0.4 % Neutrophils # (Auto) 5.8 TH/MM3 Lymphocytes # (Auto) 2.9 TH/MM3 Monocytes # (Auto) 0.6 TH/MM3 Eosinophils # (Auto) 0.1 TH/MM3 Basophils # (Auto) 0.0 TH/MM3 CBC Comment DIFF FINAL Differential Comment Blood Urea Nitrogen 15 MG/DL Creatinine 0.84 MG/DL Random Glucose 75 MG/DL Total Protein 6.8 GM/DL Albumin 2.6 GM/DL Calcium Level 8.0 MG/DL Alkaline Phosphatase 89 U/L Aspartate Amino Transf (AST/SGOT) 21 U/L Alanine Aminotransferase (ALT/SGPT) 22 U/L Total Bilirubin 0.3 MG/DL Sodium Level 136 MEQ/L Potassium Level 4.0 MEQ/L Chloride Level 110 MEQ/L Carbon Dioxide Level 17.3 MEQ/L Anion Gap 9 MEQ/L Estimat Glomerular Filtration Rate 98 ML/MIN Urine Color LIGHT-YELLOW Urine Turbidity CLEAR Urine pH 5.5 Urine Specific [place] 1.006 Urine Protein NEG mg/dL Urine Glucose (UA) NEG mg/dL Urine Ketones NEG mg/dL Urine Occult Blood MOD Urine Nitrite NEG Urine Bilirubin NEG Urine Urobilinogen LESS THAN 2.0 MG/DL Urine Leukocyte Esterase MOD Urine RBC LESS THAN 1 /hpf Urine WBC 2 /hpf Urine Squamous Epithelial Cells <1 /hpf Urine Bacteria RARE /hpf Urine Mucus FEW /lpf Microscopic Urinalysis Comment CULT NOT INDICATED MDM Medical Decision Making Medical Screen Exam Complete: Yes Emergency Medical Condition: Yes Medical Record Reviewed: Yes Interpretation(s) US - CONCLUSION: Small volume of fluid and debris in the endometrial cavity. Differential Diagnosis Anemia versus hemorrhage versus retained products of conception Narrative Course 27-year-old female presents to the emergency department for evaluation of leading. CBC, CMP, type and screen, UA are ordered and pending. Ultrasound of the pelvis is ordered and pending. Patient is given normal saline 1 L IV bolus. CBC shows normal hemoglobin and hematocrit 12.4, 38.4. CMP shows no acute abnormality. UA is negative for acute infection. US shows small volume of fluid and debris in the endometrial cavity. I discussed results with the OB hospitalist, Dr. Biswas, who actually delivered the patient. He states that ultrasound results are normal for being 10 days . He would like the patient to follow-up with her newspaper manager palpation. I did re-examine the abdomen and the uterus is below the umbilicus. Patient instructed to follow Dr. Patel. She is to return here for any acute worsening of symptoms. Diagnosis Primary Impression: bleeding Qualified Codes: O72.1 - Other immediate hemorrhage Referrals: Jessica Patel MD call for appointment Patient Instructions: General Instructions, Bleeding (ED) Additional Instructions: Follow up with Dr. Patel. Return to the emergency department for any acute, worsening of symptoms. Med/Other Pt SpecificInfo: No Change to Meds Disposition: 01 DISCHARGE HOME Condition: Stable Michelle Curran Aug 27, 2017 20:07
[2017-08-27 20:45] LABS: AUTOMATED NEUTROPHIL # 5.8 TH/MM3 (1.8-7.7); BASOPHIL % 0.4 % (0.0-2.0); EOSINOPHIL # 0.1 TH/MM3 (0-0.4); HEMATOCRIT 38.4 % (35.0-46.0); HEMOGLOBIN 12.4 GM/DL (11.6-15.3); LYMPH % 30.7 % (9.0-44.0); LYMPHOCYTE # 2.9 TH/MM3 (1.0-4.8); MEAN CELL VOLUME 82.4 FL (80.0-100.0); MEAN CORPUSCULAR HEMOGLOBIN 26.7 PG (27.0-34.0); MEAN CORPUSCULAR HGB CONC 32.4 % (32.0-36.0); MEAN PLATELET VOLUME 7.9 FL (7.0-11.0); MONO % 6.5 % (0.0-8.0); MONOCYTE # 0.6 TH/MM3 (0-0.9); NEUT % 61.4 % (16.0-70.0); PLATELET COUNT 350 TH/MM3 (150-450); RED BLOOD COUNT 4.66 MIL/MM3 (4.00-5.30); WHITE BLOOD COUNT 9.5 TH/MM3 (4.0-11.0)
[2017-08-27 21:57] LABS: ALBUMIN 2.6 GM/DL (3.4-5.0); AST (GOT) 21 U/L (15-37); BICARBONATE 17.3 MEQ/L (21.0-32.0); CHLORIDE 110 MEQ/L (98-107); CREATININE 0.84 MG/DL (0.50-1.00); GLOMERULAR FILTRATION RATE 98 ML/MIN (>89); GLUCOSE,RANDOM 75 MG/DL (74-106); SODIUM (NA) 136 MEQ/L (136-145)
[2017-08-27 21:58] LABS: ALT (GPT) 22 U/L (10-53)
[2017-08-27 22:03] LABS: BLOOD UREA NITROGEN 15 MG/DL (7-18)
--- NOTE | 2017-08-27 22:06 | RADRPT ---
EXAM DATE/TIME: 08/27/2017 21:25 [facility] COMPARISON: No previous studies available for comparison. INDICATIONS : Pelvic pain and bleeding 10 days . MEDICAL HISTORY : . Gastroesophageal reflux disease. Headaches. Arthritis. SURGICAL HISTORY : Cholecystectomy. ENCOUNTER: Initial ACUITY: 1 day PAIN SCORE: 5/10 LOCATION: Bilateral pelvis MEASUREMENTS: UTERUS: 17.2 x 11.7 x 7.9 cm ENDOMETRIAL STRIPE: >20 mm RIGHT OVARY: 2.8 x 1.7 x 1.6 cm LEFT OVARY: 3.6 x 3.2 x 2.1 cm FINDINGS: UTERUS: There is a small volume of fluid and debris within the endometrial cavity. RIGHT OVARY: Ovary contains no mass or significant cystic lesion. LEFT OVARY: Ovary contains no mass or significant cystic lesion. MISCELLANEOUS: No free fluid. CONCLUSION: Small volume of fluid and debris in the endometrial cavity. Margarito Goldman MD on August 27, 2017 at 22:03 Board Certified Radiologist. This report was verified electronically.
[2017-08-27 22:11] LABS: ALKALINE PHOSPHATASE 89 U/L (45-117); TOTAL BILIRUBIN ADULT 0.3 MG/DL (0.2-1.0); TOTAL PROTEIN 6.8 GM/DL (6.4-8.2)
[2017-08-27 22:30] LABS: BACTERIA, URINE RARE /hpf; BILIRUBIN, URINE NEG (NEG); BLOOD, URINE MOD (NEG); GLUCOSE,URINE NEG (NEG); KETONE, URINE NEG (NEG); MUCUS URINE FEW /lpf (OCC); NITRITE,URINE NEG (NEG); PH, URINE 5.5 (5.0-8.5); SQUAMOUS EPITHELIAL CELL URINE <1 /hpf (0-5); URINE COLOR LIGHT-YELLOW (YELLW/STRAW); URINE LEUKOCYTE ESTERASE MOD (NEG)
== END 2017-08-27 23:03 | disposition home or self-care (01) ==
LOC: NEPE 19:12
DX: O72.1 Other immediate postpartum hemorrhage (principal)
CPT/HCPCS: 76856; 80053; 81001; 85025; 86850; 86900; 86901; 96360; 99285; J7030

== ENCOUNTER → 2017-10-13 | Outpatient (CLI) | payer OTHER ==
[2017-10-13 13:11] LABS: HEMATOCRIT 35.3 % (35.0-46.0); HEMOGLOBIN 11.4 GM/DL (11.6-15.3); MEAN CELL VOLUME 81.4 FL (80.0-100.0); MEAN CORPUSCULAR HEMOGLOBIN 26.3 PG (27.0-34.0); MEAN CORPUSCULAR HGB CONC 32.3 % (32.0-36.0); MEAN PLATELET VOLUME 7.4 FL (7.0-11.0); PLATELET COUNT 339 TH/MM3 (150-450); RED BLOOD COUNT 4.33 MIL/MM3 (4.00-5.30); RED CELL DISTRIBUTION WIDTH 15.3 % (11.6-17.2)
[2017-10-13 13:14] LABS: BILIRUBIN, URINE NEG (NEG); BLOOD, URINE NEG (NEG); GLUCOSE,URINE NEG (NEG); KETONE, URINE NEG (NEG); NITRITE,URINE NEG (NEG); PH, URINE 6.5 (5.0-8.5); SQUAMOUS EPITHELIAL CELL URINE 3 /hpf (0-5); URINE COLOR YELLOW (YELLW/STRAW); URINE LEUKOCYTE ESTERASE TRACE (NEG)
[2017-10-13 13:39] LABS: BLOOD UREA NITROGEN 10 MG/DL (7-18); CALCIUM 8.3 MG/DL (8.5-10.1); CHLORIDE 108 MEQ/L (98-107); CREATININE 0.73 MG/DL (0.50-1.00); GLOMERULAR FILTRATION RATE 115 ML/MIN (>89); GLUCOSE,FASTING 78 MG/DL (74-99); SODIUM (NA) 139 MEQ/L (136-145)
== END ==
LOC: CPRE 12:19
PROVIDERS: ATTEND Obstetrics & Gynecology
DX: Z01.812 Encounter for preprocedural laboratory examination (principal); N91.0 Primary amenorrhea
CPT/HCPCS: 36415; 80048; 81001; 84703; 85027

== ENCOUNTER 2017-10-16 14:38 | Observation (INO) | payer OTHER ==
[~2017-10-16] VITALS: Ht 162.6 cm; Wt 97.0 kg
[~2017-10-16 14:38] MED LIST changes: +DEXAMETHASONE SOD PHOS 4 MG/ML VIAL IV ONE; +GLYCOPYRROLATE 1 MG/5 ML SYRINGE IV PUSH ONE; -HYDR-3516 PO; -IBUP1TAB7 PO; +KETOROLAC TROMETHAMINE 30 MG/ML (IVP) VIAL IV PUSH ONE; +LACTATED RINGER'S 1000 ML INJ 1,000 ML IV ONE; +LIDOCAINE HCL 1% PF 5 ML SYRINGE OTHER ONE; +NEOSTIGMINE 5 MG/5 ML SYRINGE IV PUSH ONE; +ONDANSETRON HCL 4 MG/2 ML VIAL IV ONE; +PROPOFOL 200 MG/20 ML AMP IV ONE
[2017-10-16] MEDS ORDERED: SODIUM CHLORID 0.9% 500 ML IV PRN (15:00)
[2017-10-16] MEDS ORDERED: POVIDONE IODINE 5% (ANTISEPSIS KIT) 4 APPLICATIONS EACH NARE PRN (15:00)
[2017-10-16] MEDS ORDERED: LACTATED RINGER'S 1000 ML IV PRN (15:00)
[2017-10-16] MEDS ORDERED: CHLORHEXIDINE GLUCONATE 2 % 1 PACK (2 CLOTHS) TOPICAL PRN (15:00)
[2017-10-16] MEDS ORDERED: METOPROLOL TARTRATE 25 MG TAB PO PRN (15:00)
[2017-10-16] MEDS ORDERED: DO NOT ADM ANY ANTICOAGULANT DRUGS PRN (18:02)
[2017-10-16] MEDS ORDERED: *MEPERIDINE 25 MG INJ VIAL PERIprocedural Use ONLY ONE (18:05)
[2017-10-16] MEDS ORDERED: MIDAZOLAM HCL 2 MG/2 ML VIAL ONE (18:07)
[2017-10-16] MEDS ORDERED: SUGAMMADEX SODIUM 200 MG/2 ML VIAL IV PUSH ONE (18:07)
[2017-10-16] MEDS ORDERED: *diphenhydrAMINE HCL 50 MG/ML VIAL PERIprocedural Use ONLY ONE (18:10)
[2017-10-16] MEDS ORDERED: methylPREDNISolone SOD SUCC 125 MG/2 ML VIAL ONE (18:19)
[2017-10-16] MEDS ORDERED: FAMOTIDINE 20 MG/2 ML VIAL ONE (18:20)
[2017-10-16] MEDS ORDERED: LORazepam 2 MG/ML VIAL ONE (18:39)
[2017-10-16] MEDS ORDERED: ACETAMINOPHEN/HYDROcodone 325 MG/5 MG TAB PO PRN (19:00)
[2017-10-16] MEDS ORDERED: hydrOXYzine HCL 50 MG TAB PO PRN (19:00)
[2017-10-16] MEDS ORDERED: methylPREDNISolone SOD SUCC 125 MG/2 ML VIAL IV ONE (19:00)
[2017-10-16] MEDS ORDERED: ONDANSETRON HCL 4 MG/2 ML VIAL IV PUSH PRN ×2 (19:00→21:45)
[2017-10-16] MEDS ORDERED: FAMOTIDINE 20 MG/2 ML VIAL IV ONE (19:00)
[2017-10-16 20:10] VITALS: BP 125/77; PULSE 81; RESP 17; TEMP 97.5; O2SAT 100
[2017-10-16] MEDS ORDERED: LORazepam 2 MG/ML VIAL IV PUSH ONE (21:30)
[2017-10-16] MEDS ORDERED: IBUPROFEN 600 MG TAB PO PRN (21:45)
[2017-10-16] MEDS ORDERED: SODIUM CHLOR 0.9% 1000 ML INJ 1,000 ML IV SCH (21:45)
[2017-10-17 00:05] VITALS: BP_SYST 111; BP_SYST 122; BP_DIAS 61; BP_DIAS 72; PULSE 106; PULSE 67; RESP 16; RESP 17; TEMP 96.1; TEMP 98.1; O2SAT 100; O2SAT 95
[2017-10-17 04:35] VITALS: BP 104/59; PULSE 92; RESP 16; TEMP 96.4; O2SAT 100
[2017-10-17 07:52] VITALS: BP 103/58; PULSE 97; RESP 17; TEMP 96.8; O2SAT 99
[2017-10-17 11:50] VITALS: BP 99/65; PULSE 102; RESP 18; TEMP 96; O2SAT 100
[2017-10-17] MEDS ORDERED: HYDROcodone/IBUPROFEN 7.5MG/200MG TAB PO ONE (12:45)
[2017-10-17] MEDS ORDERED: HYDROcodone/IBUPROFEN 7.5MG/200MG TAB PO PRN (12:45)
[2017-10-17 13:24] VITALS: O2SAT 100
[2017-10-17 16:00] VITALS: BP 93/50; PULSE 102; RESP 18; TEMP 97.7; O2SAT 100
--- NOTE | 2017-10-24 20:15 | MP ---
cc: Jessica PATEL MD DATE OF SURGERY: 10/16/2017. PREOPERATIVE DIAGNOSIS: Desires sterilization. POSTOPERATIVE DIAGNOSIS: Desires sterilization. OPERATIVE PROCEDURE PERFORMED: 1. Dilation and curettage of the uterus. 2. Laparoscopic bilateral tubal ligation. SURGEON: Jessica Patel MD. ANESTHESIA: General. FINDINGS: On examination under anesthesia, the vagina was clean, the cervix was clean and parous without lesions. The uterus was normal in size, shape and consistency and freely mobile. The adnexa were negative for masses. Laparoscopic exam revealed normal tubes, normal ovaries, normal cul-de-sac anterior and posterior, normal uterus. COMPLICATIONS: None. COUNTS: Correct. ESTIMATED BLOOD LOSS: Minimal. DISPOSITION: The patient tolerated the procedure well and went to the recovery room in good condition. DESCRIPTION OF THE PROCEDURE IN DETAIL: The patient was taken to the operating room and identified by name band and verbally and given a general anesthetic and prepped and draped in the usual sterile fashion in the dorsal lithotomy position. The bladder was drained with an in and out catheter and examination under anesthesia was carried out with the above findings. A weighted speculum was placed in the vagina and the anterior lip of the cervix was grasped with a single-tooth tenaculum. The cervix was serially dilated without difficulty. The #1 sharp curette was used to gently curette the entire endometrium. Hulka clamp was then placed and attention was turned to the umbilical area. A small subumbilical incision was made with a 5 mm trocar. We entered the abdomen and created a pneumoperitoneum with 3 liters of CO2. Inferolateral to the umbilicus bilaterally we placed two 5 mm trocars under direct vision without difficulty and identified the fallopian tubes. The left fallopian tube was grasped at its fimbriated end and taken along the mesosalpinx with the Harmonic scalpel removing the entire tube. This repeated on the right side. The tubes were removed through the 5-mm port and sent for pathologic evaluation. Hemostasis was excellent. The upper abdomen was visualized and was normal. We removed the laparoscope under direct vision and let the air out through the second and third punctures and repaired the incisions with a 4-0 Monocryl in a subcuticular manner. She tolerated the procedure well and went to the recovery room in good condition. R. MD FROYLAN [place]/JCRosales /9:45 AM /8:04 PM
== END 2017-10-17 18:39 | disposition home or self-care (01) ==
LOC: HSDC 14:38 → N06B 20:29
PROVIDERS: ADMIT Obstetrics & Gynecology; ATTEND Obstetrics & Gynecology
DX: Z30.2 Encounter for sterilization (principal); N92.0 Excessive and frequent menstruation with regular cycle
CPT/HCPCS: 00851; 00952; 58558; 58670; 88305; 96360; G0378; J1100; J1200; J1885; J2060; J2175; J2250; J2405; J2710; J2930; J3010; J7030; J7120